=== PATIENT | male | born 1965 | race Caucasian/White ===

== ENCOUNTER 2020-06-02 22:18 | Emergency (ER) | payer MEDICAID, SELFPAY ==
[2020-06-02 22:25] VITALS: BP 127/79; PULSE 88; RESP 20; TEMP 36.7; O2SAT 100; BMI 32.5
--- NOTE | 2020-06-02 22:44 | ED.GENADULT ---
HPI - General Adult General Chief complaint: ETOH/Substance Use Stated complaint: etoh Time Seen by Provider: 06/02/20 22:41 Source: patient Mode of arrival: EMS Limitations: no limitations History of Present Illness HPI narrative: Patient with history of alcohol abuse and did have few beers today asking for the COVID testing scared for COVID denies any cough or shortness of breath Related Data Allergies Allergy/AdvReac Type Severity Reaction Status Date / Time haloperidol [From HALDOL] Allergy Unknown UNKNOWN Unverified 01/12/20 15:58 lithium [[place]] Allergy Unknown UNKNOWN Unverified 01/12/20 15:58 risperidone [From RISPERDAL] Allergy Unknown UNKNOWN Unverified 01/12/20 15:58 [place] Carbonate Allergy Unknown Uncoded 08/23/14 00:00 Review of Systems Review of Systems: Yes Other (Intoxicated) [facility] Social History Social History Advance Directives: No Physical Exam Vital Signs: Vital Signs: Last Vital Signs Temp 98.0 F 06/02/20 22:25 Pulse 88 06/02/20 22:25 Resp 20 06/02/20 22:25 BP 127/79 06/02/20 22:25 Pulse Ox 100 06/02/20 22:25 Body Mass Index 32.5 Const: General: comfortable, no acute distress, well developed and intoxicated appearing Orientation/consciousness: oriented to person and oriented to place HENMT: Head: Yes normal to inspection, Yes normocephalic and Yes atraumatic Ears: hearing grossly normal bilaterally Eyes: General: appearance normal, both eyes and all related structures Neck: Neck: Yes full ROM and Yes no JVD Chest: Chest palpation & inspection: normal inspection of the chest and normal palpation of entire chest wall Resp: Effort & Inspection: normal respiratory effort Auscultation: clear to auscultation bilaterally, no crackles and no rales Cardio: Palpation: normal PMI Rate: regular rate Rhythm: regular rhythm Heart sounds: S1 normal heart sound present and S2 normal heart sound present Peripheral pulses: Peripheral pulses 2+ throughout GI: Inspection: Yes normal to inspection Palpation (GI): Soft to palpation and nontender Back/Spine/Pelvis: Thoracic/Lumbar Spine: No thoracic spinal tenderness and No lumbar spinal tenderness Skin: General skin exam: no rashes or lesions noted Neuro: General: oriented to person, oriented to place, gait normal, tone normal and no focal motor deficits Extrem: General: Yes normal to inspection, Yes no calf tenderness and No pedal edema Course Course Course Narrative: Patient clinically sober able to ambulate unsteady gait COVID-19 is negative will discharge patient home advised to follow with detox Medical Decision Making Lab Data Lab results reviewed: Yes I reviewed the patient's lab results. Labs: Lab Results 06/02/20 Range/Units 23:01 COVID-19 (NITHIN) Negative (Negative) COVID-19 Clin Com See Note Discharge Plan Discharge Clinical Impression: Alcoholic intoxication Qualifiers: Complication of substance-induced condition: uncomplicated Qualified Code(s): F10.920 - Alcohol use, unspecified with intoxication, uncomplicated Patient Disposition: Home, Self-Care Instructions: Abuse of Alcohol (ED) Additional Instructions: Stop drinking alcohol and follow up with detox Print Language: [place] Irish
[2020-06-02 23:23] LABS: COVID-19 Test Negative (Negative); IDNOW Serial# 9DD0AD1C
== END 2020-06-03 00:27 | disposition home or self-care (01) ==
PROVIDERS: Emergency Provider Internal Medicine
DX: F10.920 Alcohol use, unspecified with intoxication, uncomplicated (principal); R05 Cough; Y90.9 Presence of alcohol in blood, level not specified; Z20.822 Contact with and (suspected) exposure to COVID-19
CPT/HCPCS: 36415; 87635; 99283; 99284

== ENCOUNTER 2020-06-22 19:25 | Emergency (ER) | payer MEDICAID, SELFPAY ==
[2020-06-22 19:41] LABS: Glucose, Whole Blood 114 mg/dL (60-115)
[2020-06-22 19:45] VITALS: BP 158/75; PULSE 96; RESP 18; TEMP 36.7; O2SAT 98; BMI 23.1
--- NOTE | 2020-06-22 21:24 | ED.PSYCH ---
HPI - Psych General Chief Complaint: ETOH/Substance Use Stated Complaint: hallucinations Time Seen by Provider: 06/22/20 20:37 Source: patient Mode of arrival: ambulatory Limitations: no limitations History of Present Illness HPI Narrative: Patient comes to emergency room complaining of a rash in both arms, very itchy. Patient also states that he has been hallucinating, seeing monsters in the closet in his room. Patient denies suicidal or homicidal ideation Related Data Previous Rx's Medication Instructions Recorded hydrocortisone 1 appl TOPICAL BID #20 g 06/22/20 Allergies Allergy/AdvReac Type Severity Reaction Status Date / Time haloperidol [From HALDOL] Allergy Unknown UNKNOWN Unverified 01/12/20 15:58 lithium [[place]] Allergy Unknown UNKNOWN Unverified 01/12/20 15:58 risperidone [From RISPERDAL] Allergy Unknown UNKNOWN Unverified 01/12/20 15:58 [place] Carbonate Allergy Unknown Uncoded 08/23/14 00:00 Review of Systems Review of Systems: Constitutional : No Weight loss, No Fever, No Chills, No Night Sweats, No Fatigue, No Malaise ENT/Mouth : No Hearing loss, No Ear Pain, No Nasal Congestion, No Sinus Pain, No Hoarseness, No sore throat, No Rhinorrhea, No Swallowing Difficulty Eyes: No Eye Pain, No Swelling, No Redness, No Foreign Body, No Discharge, No Vision Changes Cardiovascular : No Chest Pain, No SOB, No Dyspnea on Exertion, No Orthopnea, No Edema, No Palpitations Respiratory : No Cough, No Sputum, No Wheezing, No Smoke Exposure, No Dyspnea Gastrointestinal : No Nausea, No Vomiting, No Diarrhea, No Constipation, No abdominal Pain, No Hematochezia, No Melena Genitourinary : no irregular bleeding, No Dysuria, No Urinary Frequency, No Hematuria, No Urinary Incontinence, No Urgency, No Flank Pain, No Urinary Flow Changes, No Hesitancy Musculoskeletal : No joint pain, No Myalgias, No Joint Swelling Skin : Itchy rash on forearms Neuro : No Weakness, No Numbness, No Paresthesias, No Loss of Consciousness, No Dizziness, No Headache Psych : No Anxiety/Panic, No Depression, No SI/HI/AH/VH, complaining of visual hallucinations, seeing monsters in his closet Heme/Lymph: No Bruising, No Bleeding,No Lymphadenopathy Endocrine : No Polyuria, No Polydipsia, No Temperature Intolerance [facility] Past Medical History Medical History Diabetes HTN (hypertension) Schizophrenia Social History Social History Advance Directives: No Advance Directives Information Provided: No Physical Exam Vital Signs: Vital Signs: Last Vital Signs Temp 98.1 F 06/22/20 19:45 Pulse 96 06/22/20 19:45 Resp 18 06/22/20 19:45 BP 158/75 H 06/22/20 19:45 Pulse Ox 98 06/22/20 19:45 Body Mass Index 23.1 Appearance: Alert. Oriented X3. No acute distress. Eyes: Pupils equal, round and reactive to light. ENT: Pharynx normal. Neck: Normal inspection. Neck supple. No lymph nodes noted. No crepitus CVS: Normal heart rate and rhythm. Pulses normal. Normal S1 and S2 Respiratory: No respiratory distress. Breath sounds normal. No Wheezing. No rales Abdomen: Soft and nontender. No rigidity. No distention. good BS x4 Skin: Skin warm and dry. Scabs in his forearm, no definite rash. Seems that the patient has been taking in his arms, no rash in the back, few scabs in the upper thighs, none in the lower extremities, none in the abdominal area Extremities: No lower extremity edema. No lower extremity edema. No Lacerations. No Rash Neuro: Oriented X 3. No motor deficit. No sensory deficit. Moving all extermities. No slurred speech. Course Course Course Narrative: Nonspecific rash, this does not look like bedbug bites or scabies. Regarding the hallucinations, I discussed with the patient that he should be seen by behavioral health [facility]. Patient states that he does not want to see behavioral health network. Patient is not suicidal or homicidal, patient is alert and oriented x3. There is no reason to Section 12 the patient. MDM - Psych Lab Data Labs: Lab Results 06/22/20 Range/Units 19:38 POC Glucose 114 (60-115) mg/dL Discharge Plan Discharge Clinical Impression: Dermatitis Patient Disposition: Home, Self-Care Instructions: Dermatitis (ED) Additional Instructions: If you have any ongoing hallucinations or any new symptoms, please return to the emergency room. Please follow-up with your primary care physician meetorrow. If you have any worsening or new symptoms, please return to the emergency room or call 911 Prescriptions: New hydrocortisone 2.5 % cream 1 appl topical BID Qty: 20 RF: 0
== END 2020-06-22 21:47 | disposition home or self-care (01) ==
PROVIDERS: Emergency Provider Emergency Medicine
DX: L30.9 Dermatitis, unspecified (principal); R21 Rash and other nonspecific skin eruption; R44.1 Visual hallucinations; F20.9 Schizophrenia, unspecified; E11.9 Type 2 diabetes mellitus without complications; I10 Essential (primary) hypertension
CPT/HCPCS: 82947; 99282; 99283

== ENCOUNTER 2020-07-13 03:26 | Emergency (ER) | payer MEDICAID, SELFPAY ==
[2020-07-13 03:35] VITALS: BP 139/69; PULSE 94; RESP 18; TEMP 36.6; O2SAT 98; BMI 30.2
--- NOTE | 2020-07-13 03:44 | ED.ALCOHOL ---
HPI - Alcohol General Chief Complaint: Psychiatric Symptoms Stated Complaint: PSYCH EVAL Time Seen by Provider: 07/13/20 03:43 History of Present Illness HPI narrative: Patient history of ETOH. Positive psych history. Patient denies any suicidal homicidal ideation. ? intoxicated. Sent in for further evaluation. Related Data Previous Rx's Medication Instructions Recorded hydrocortisone 1 appl TOPICAL BID #20 g 06/22/20 Allergies Allergy/AdvReac Type Severity Reaction Status Date / Time haloperidol [From HALDOL] Allergy Unknown UNKNOWN Unverified 01/12/20 15:58 lithium [[place]] Allergy Unknown UNKNOWN Unverified 01/12/20 15:58 risperidone [From RISPERDAL] Allergy Unknown UNKNOWN Unverified 01/12/20 15:58 [place] Carbonate Allergy Unknown Uncoded 08/23/14 00:00 Review of Systems Review of Systems: Unable to obtain review of systems secondary to patient's condition [facility] Past Medical History Medical History Diabetes HTN (hypertension) Schizophrenia Social History Social History Advance Directives: No Advance Directives Information Provided: No Physical Exam Vital Signs: Vital Signs: Last Vital Signs Temp 97.9 F 07/13/20 03:35 Pulse 94 07/13/20 03:35 Resp 18 07/13/20 03:35 BP 139/69 07/13/20 03:35 Pulse Ox 98 07/13/20 03:35 Body Mass Index 30.2 Appearance: Alert. Oriented X3. No acute distress. Eyes: Pupils equal, round and reactive to light. ENT: Pharynx normal. Neck: Normal inspection. Neck supple. No lymph nodes noted. No crepitus CVS: Normal heart rate and rhythm. Pulses normal. Normal S1 and S2 Respiratory: No respiratory distress. Breath sounds normal. No Wheezing. No rales Abdomen: Soft and nontender. No rigidity. No distention. good BS x4 Skin: Skin warm and dry. Normal skin color. Normal skin turgor. Extremities: No lower extremity edema. Neurovascular intact to all extremities. No Lacerations. No Rash Neuro: Oriented X 3. No motor deficit. No sensory deficit. Moving all extermities. No slurred speech MDM - Alcohol MDM Narrative Medical decision making narrative: Will obtain alcohol level and await patient's sobering. Lab Data Labs: Lab Results 07/13/20 07/13/20 07/13/20 Range/Units 03:47 03:47 04:20 Urine Opiates Screen Not Detected (Not Detect) Ur Barbiturates Screen Not Detected (Not Detect) Ur Phencyclidine Scrn Not Detected (Not Detect) Ur Amphetamines Screen Not Detected (Not Detect) U Benzodiazepines Scrn Not Detected (Not Detect) Urine Cocaine Screen Not Detected (Not Detect) U Marijuana (THC) Screen Not Detected (Not Detect) Ethyl Alcohol 10 mg/dL COVID-19 (NITHIN) Negative (Negative) COVID-19 Clin Com See Note Discharge Plan Discharge Clinical Impression: Alcoholic intoxication, Substance abuse Patient Disposition: Home, Self-Care Instructions: Alcohol Intoxication (ED), Polysubstance Abuse (ED) Prescriptions: No Action hydrocortisone 2.5 % cream 1 appl topical BID Qty: 20 RF: 0 Print Language: Tajik
[2020-07-13 04:16] LABS: COVID-19 Test Negative (Negative)
[2020-07-13 04:55] LABS: Ethanol 10 mg/dL
[2020-07-13 04:58] LABS: Amphetamine Screen Urine Not Detected (Not Detect); Barbiturates, Urine Not Detected (Not Detect); Benzodiazepines Screen Urine Not Detected (Not Detect); Cannabinoid Screen Urine Not Detected (Not Detect); Cocaine Screen Urine Not Detected (Not Detect); Opiate Screen Urine Not Detected (Not Detect); Phencyclidine Screen Urine Not Detected (Not Detect)
== END 2020-07-13 06:10 | disposition home or self-care (01) ==
PROVIDERS: Emergency Provider Emergency Medicine Emergency Medical Services
DX: F10.120 Alcohol abuse with intoxication, uncomplicated (principal); Y90.0 Blood alcohol level of less than 20 mg/100 ml; F19.10 Other psychoactive substance abuse, uncomplicated; F20.9 Schizophrenia, unspecified; I10 Essential (primary) hypertension; E11.9 Type 2 diabetes mellitus without complications
CPT/HCPCS: 36415; 80307; 80320; 87635; 99284

== ENCOUNTER 2020-07-31 10:20 | Emergency (ER) | payer MEDICAID, SELFPAY ==
--- NOTE | ~2020-07-31 | CT_ITS ---
EXAMINATION: CT HEAD WITHOUT CONTRAST CLINICAL INFORMATION: Altered mental status COMPARISON: Head CT September 24, 2017 TECHNIQUE: Contiguous axial imaging was performed from the skull base to vertex without intravenous administration of contrast. This CT examination was performed using dose optimization techniques as appropriate, variously including the following: *Automated exposure control *Adjustment of mA and/or kV according to patient size (this includes techniques or standardized protocols for targeted exams where dose is matched to indication/reason for exam; i.e. extremities or head) *Use of iterative reconstruction technique DLP: 662 mGy-cm FINDINGS: There is no evidence of acute intracranial hemorrhage or territorial infarction. No abnormal mass effect or midline shift is seen. Hirsch to white matter differentiation is well preserved. No extra-axial fluid collections are identified. The ventricles are normal in size. There is no abnormal attenuation within the brain parenchyma. The osseous structures and soft tissues are normal. The mastoid air cells and visualized portions of the paranasal sinuses are well aerated. CT/CT head/brain wo con IMPRESSION: No acute intracranial pathology.
--- NOTE | 2020-07-31 10:22 | ED.PSYCH ---
HPI - Psych General Chief Complaint: Altered Mental Status Stated Complaint: PSYCH EVAL Time Seen by Provider: 07/31/20 10:22 Source: patient, EMS and [facility]cel[employer] Mode of arrival: EMS Limitations: altered mental status History of Present Illness HPI Narrative: 55 yo male with hx of DM, HTN, schizophrenia sent in by his provider for increased confusion, hallucinations, not showing up for appointments not taking his psychiatric medications MD complaint: altered mental status and hallucinations Onset (ago): unknown Duration: constant History of same: Yes Relieving factors: none Exacerbating factors: none Context: not taking psychiatric medications Associated psychiatric symptoms: none Associated symptoms: confusion Treatments prior to arrival: none Related Data Home Medications Medication Instructions Recorded Confirmed benztropine 1 mg PO BID 07/31/20 07/31/20 famotidine 20 mg PO BID 07/31/20 07/31/20 fluphenazine HCl 5 mg PO DAILY 07/31/20 07/31/20 fluphenazine decanoate 50 mg IM Q2W 07/31/20 glyburide 5 mg PO DAILY 07/31/20 07/31/20 lisinopril 10 mg PO DAILY 07/31/20 07/31/20 metformin 500 mg PO BID 07/31/20 07/31/20 pioglitazone 15 mg PO DAILY 07/31/20 07/31/20 Allergies Allergy/AdvReac Type Severity Reaction Status Date / Time haloperidol [From HALDOL] Allergy Unknown UNKNOWN Unverified 01/12/20 15:58 lithium [[place]] Allergy Unknown UNKNOWN Unverified 01/12/20 15:58 risperidone [From RISPERDAL] Allergy Unknown UNKNOWN Unverified 01/12/20 15:58 [place] Carbonate Allergy Unknown Uncoded 08/23/14 00:00 Review of Systems Review of Systems: Constitutional : No Weight loss, No Fever, No Chills, No Fatigue, No Malaise ENT/Mouth : No sore throat, No Rhinorrhea Eyes: No Eye Pain, No Swelling, No Redness Cardiovascular : No Chest Pain, No SOB, No Dyspnea on Exertion, No Orthopnea, No Edema, No Palpitations Respiratory : No Cough, No Sputum, No Wheezing Gastrointestinal : No Nausea, No Vomiting, No Diarrhea, No Constipation, No abdominal Pain, No Hematochezia, No Melena Genitourinary : No Dysuria, No Urinary Frequency, No Hematuria, Musculoskeletal : No joint pain, No Myalgias, No Joint Swelling Skin : No Skin Lesions, No rash Neuro : No Weakness, No Numbness, No Dizziness, No Headache Psych : No Anxiety/Panic, No Depression, pos hallucinations, no SI/HI Heme/Lymph: No Bruising, No Bleeding,No Lymphadenopathy Endocrine : No Polyuria, No Polydipsia All other systems reviewed and are negative [facility] Past Medical History Attestation statement: The following information was validated with the patient. Medical History Diabetes HTN (hypertension) Schizophrenia Social History Social History (Updated 07/31/20 @ 10:36 by Saida Giron DO) Alcohol intake: current Smoking Status: Current every day smoker Use of substances other than those prescribed or required for medical reasons: No Substance Use Type: Crack/Cocaine and Marijuana Last Used Substance: Days (ago) Advance Directives: No Advance Directives Information Provided: No Physical Exam Vital Signs: Vital Signs: Last Vital Signs Temp 98.6 F 07/31/20 10:32 Pulse 86 07/31/20 10:32 Resp 16 07/31/20 10:32 BP 145/61 H 07/31/20 10:32 Pulse Ox 98 07/31/20 10:32 Body Mass Index 31.3 Appearance: Alert. Oriented X2. No acute distress. Eyes: Pupils equal, round and reactive to light. ENT: Pharynx normal. Neck: Normal inspection. Neck supple. CVS: Normal heart rate and rhythm. Pulses normal. Respiratory: No respiratory distress. Breath sounds normal. Abdomen: Soft and nontender. Skin: Skin warm and dry. Normal skin color. Normal skin turgor. Extremities: No lower extremity edema. No calf ttp Neuro: Oriented X 2. No motor deficit. No sensory deficit. Psych: calm cooperative, smiling, + AH/VH Course Course Course Narrative: Physician observation started at 245pm. Patient placed in physician observation because the patient needed more time to see [facility] and be evaluated for the need for psych admission. At the time observation was started the patient's vitals were stable, patient is alert but confused and at times slightly agitated, Neuro: nonfocal, CV RRR, Lungs clear K 6.5 EKG ordered normal Cr - could be error, will repeat and dose oral kayexalate patient signed out to Dr. Peralta pending workup and [facility] K 5.8 will repeat and check later MDM - Psych MDM Narrative Medical decision making narrative: 55 yo male with DM, HTN, schizophrenia not compliant with medications - sent by providers, has increased confusion at this time will need labs, CT head to r/o mass, could just be non compliance once medically cleared will refer to [facility] Lab Data Result diagrams: 07/31/20 14:41 07/31/20 15:52 Labs: Lab Results 07/31/20 07/31/20 07/31/20 Range/Units 11:37 11:37 11:38 WBC (4.8-10.8) X10*3/uL RBC (4.60-5.80) X10*6/uL Hgb (14.0-18.0) g/dl Hct (42-52) % MCV (80-98) fL MCH (27.0-33.0) pg MCHC (31.0-36.0) g/dl RDW (11.0-16.0) % Plt Count (160-400) X10*3/uL MPV (9.4-12.4) fL Immature Gran % (Auto) (0.0-0.4) % Neut % (Auto) (45-73) % Lymph % (Auto) (20-40) % [place] % (Auto) (2-11) % Eos % (Auto) (0-4) % Baso % (Auto) (0-2) % Lymph # (Auto) (1.2-4.9) X10*3/uL [place] # (Auto) (0.1-1.2) X10*3/uL Eos # (Auto) (0.0-0.4) X10*3/uL Baso # (Auto) (0.0-0.2) X10*3/uL Abs Immat Gran (auto) (0.00-0.03) X10*3/uL Absolute Neuts (auto) (2.0-8.3) X10*3/uL Absolute Nucleated RBC (0.0-0.012) X10*3/uL Nucleated RBC % (auto) (0.0-0.2) /100WBC Hold Blue Top Sodium (135-145) mmol/L Potassium (3.3-5.1) mmol/L Chloride (96-108) mmol/L Carbon Dioxide (22-29) mmol/L Anion Gap (12-20) BUN (9-16) mg/dL Creatinine (0.5-1.4) mg/dL Estim Creat Clear Calc Estimated GFR Random Glucose (60-115) mg/dL Calcium (8.4-10.2) mg/dL Total Bilirubin (0.0-1.0) mg/dL Direct Bilirubin (0.0-0.5) mg/dL AST (5-37) U/L ALT (0-40) U/L Alkaline Phosphatase (39-117) U/L Total Protein (6.5-8.0) g/dL Albumin (3.5-5.0) g/dL Urine Color Urine Appearance Urine pH (5.0-8.0) Ur Specific [place] (1.005-1.025) Urine Protein (NEG-TRACE) MG/DL Urine Glucose (UA) (NEG) MG/DL Urine Ketones (NEG) MG/DL Urine Blood (NEG) Urine Nitrite (NEG) Ur Leukocyte Esterase (NEG) Urine Opiates Screen Not Detected (Not Detect) Ur Barbiturates Screen Not Detected (Not Detect) Ur Phencyclidine Scrn Not Detected (Not Detect) Ur Amphetamines Screen Not Detected (Not Detect) U Benzodiazepines Scrn Not Detected (Not Detect) Urine Cocaine Screen POSITIVE H (Not Detect) U Marijuana (THC) Screen Not Detected (Not Detect) Ethyl Alcohol < 10 mg/dL COVID-19 (NITHIN) Negative (Negative) COVID-19 Clin Com See Note 07/31/20 07/31/20 07/31/20 Range/Units 11:38 14:41 14:41 WBC 10.3 (4.8-10.8) X10*3/uL RBC 4.03 L (4.60-5.80) X10*6/uL Hgb 12.1 L (14.0-18.0) g/dl Hct 37.3 L (42-52) % MCV 92.6 (80-98) fL MCH 30.0 (27.0-33.0) pg MCHC 32.4 (31.0-36.0) g/dl RDW 11.9 (11.0-16.0) % Plt Count 249 (160-400) X10*3/uL MPV 9.7 (9.4-12.4) fL Immature Gran % (Auto) 0.7 H (0.0-0.4) % Neut % (Auto) 82.6 H (45-73) % Lymph % (Auto) 9.8 L (20-40) % [place] % (Auto) 5.6 (2-11) % Eos % (Auto) 0.6 (0-4) % Baso % (Auto) 0.7 (0-2) % Lymph # (Auto) 1.0 L (1.2-4.9) X10*3/uL [place] # (Auto) 0.6 (0.1-1.2) X10*3/uL Eos # (Auto) 0.1 (0.0-0.4) X10*3/uL Baso # (Auto) 0.1 (0.0-0.2) X10*3/uL Abs Immat Gran (auto) 0.07 H (0.00-0.03) X10*3/uL Absolute Neuts (auto) 8.5 H (2.0-8.3) X10*3/uL Absolute Nucleated RBC 0.000 (0.0-0.012) X10*3/uL Nucleated RBC % (auto) 0.0 (0.0-0.2) /100WBC Hold Blue Top SEE NOTE Sodium (135-145) mmol/L Potassium (3.3-5.1) mmol/L Chloride (96-108) mmol/L Carbon Dioxide (22-29) mmol/L Anion Gap (12-20) BUN (9-16) mg/dL Creatinine (0.5-1.4) mg/dL Estim Creat Clear Calc Estimated GFR Random Glucose (60-115) mg/dL Calcium (8.4-10.2) mg/dL Total Bilirubin (0.0-1.0) mg/dL Direct Bilirubin (0.0-0.5) mg/dL AST (5-37) U/L ALT (0-40) U/L Alkaline Phosphatase (39-117) U/L Total Protein (6.5-8.0) g/dL Albumin (3.5-5.0) g/dL Urine Color YELLOW Urine Appearance CLEAR Urine pH 6.0 (5.0-8.0) Ur Specific [place] 1.020 (1.005-1.025) Urine Protein NEG (NEG-TRACE) MG/DL Urine Glucose (UA) NEG (NEG) MG/DL Urine Ketones NEG (NEG) MG/DL Urine Blood NEG (NEG) Urine Nitrite NEG (NEG) Ur Leukocyte Esterase NEG (NEG) Urine Opiates Screen (Not Detect) Ur Barbiturates Screen (Not Detect) Ur Phencyclidine Scrn (Not Detect) Ur Amphetamines Screen (Not Detect) U Benzodiazepines Scrn (Not Detect) Urine Cocaine Screen (Not Detect) U Marijuana (THC) Screen (Not Detect) Ethyl Alcohol mg/dL COVID-19 (NITHIN) (Negative) COVID-19 Clin Com 07/31/20 07/31/20 Range/Units 14:41 15:52 WBC (4.8-10.8) X10*3/uL RBC (4.60-5.80) X10*6/uL Hgb (14.0-18.0) g/dl Hct (42-52) % MCV (80-98) fL MCH (27.0-33.0) pg MCHC (31.0-36.0) g/dl RDW (11.0-16.0) % Plt Count (160-400) X10*3/uL MPV (9.4-12.4) fL Immature Gran % (Auto) (0.0-0.4) % Neut % (Auto) (45-73) % Lymph % (Auto) (20-40) % [place] % (Auto) (2-11) % Eos % (Auto) (0-4) % Baso % (Auto) (0-2) % Lymph # (Auto) (1.2-4.9) X10*3/uL [place] # (Auto) (0.1-1.2) X10*3/uL Eos # (Auto) (0.0-0.4) X10*3/uL Baso # (Auto) (0.0-0.2) X10*3/uL Abs Immat Gran (auto) (0.00-0.03) X10*3/uL Absolute Neuts (auto) (2.0-8.3) X10*3/uL Absolute Nucleated RBC (0.0-0.012) X10*3/uL Nucleated RBC % (auto) (0.0-0.2) /100WBC Hold Blue Top Sodium 137 (135-145) mmol/L Potassium 6.5 H* 5.8 H (3.3-5.1) mmol/L Chloride 100 (96-108) mmol/L Carbon Dioxide 31 H (22-29) mmol/L Anion Gap 13 (12-20) BUN 9 (9-16) mg/dL Creatinine 0.87 (0.5-1.4) mg/dL Estim Creat Clear Calc 101.8 Estimated GFR > 60 Random Glucose 213 H (60-115) mg/dL Calcium 9.8 (8.4-10.2) mg/dL Total Bilirubin 0.6 (0.0-1.0) mg/dL Direct Bilirubin 0.2 (0.0-0.5) mg/dL AST 22 (5-37) U/L ALT 15 (0-40) U/L Alkaline Phosphatase 88 (39-117) U/L Total Protein 7.1 (6.5-8.0) g/dL Albumin 4.4 (3.5-5.0) g/dL Urine Color Urine Appearance Urine pH (5.0-8.0) Ur Specific [place] (1.005-1.025) Urine Protein (NEG-TRACE) MG/DL Urine Glucose (UA) (NEG) MG/DL Urine Ketones (NEG) MG/DL Urine Blood (NEG) Urine Nitrite (NEG) Ur Leukocyte Esterase (NEG) Urine Opiates Screen (Not Detect) Ur Barbiturates Screen (Not Detect) Ur Phencyclidine Scrn (Not Detect) Ur Amphetamines Screen (Not Detect) U Benzodiazepines Scrn (Not Detect) Urine Cocaine Screen (Not Detect) U Marijuana (THC) Screen (Not Detect) Ethyl Alcohol mg/dL COVID-19 (NITHIN) (Negative) COVID-19 Clin Com ECG Data Attestation: I personally reviewed and interpreted this ECG as follows: ECG interpretation date: 07/31/20 ECG interpretation time: 16:19 Interpretation: Rate: 83 Rhythm: NSR [place]: normal Normal P waves. Normal LOGAN. Normal QRS complex. ST T wave : inverted I and aVL, nonspecific, no CAMI qTC: normal prior studies: no change dec 2019 The study has been interpreted contemporaneously by me. . Discharge Plan Discharge Clinical Impression: Cocaine abuse Schizophrenia Qualifiers: Schizophrenia type: other Qualified Code(s): F20.89 - Other schizophrenia Prescriptions: No Action pioglitazone 15 mg tablet 15 mg PO DAILY RF: 0 glyburide 5 mg tablet 5 mg PO DAILY RF: 0 famotidine 20 mg tablet 20 mg PO BID RF: 0 fluphenazine decanoate 25 mg/mL solution 50 mg IM Q2W RF: 0 lisinopril 10 mg tablet 10 mg PO DAILY RF: 0 benztropine 1 mg tablet 1 mg PO BID RF: 0 metformin 500 mg tablet extended release 24 hr 500 mg PO BID RF: 0 fluphenazine HCl 5 mg tablet 5 mg PO DAILY RF: 0
[2020-07-31 10:28] VITALS: BP 152/82; PULSE 75
--- NOTE | 2020-07-31 10:29 | PC.NURSE ---
patient nurse Jasson # [phone]
[2020-07-31 10:30] VITALS: BP 153/72; PULSE 84; RESP 18; TEMP 37.4; O2SAT 98
[2020-07-31 10:32] VITALS: BP 145/61; PULSE 86; RESP 16; TEMP 37; O2SAT 98; BMI 31.3
--- NOTE | 2020-07-31 10:45 | PC.NURSE ---
pt brought in by ems from doctors office reportedly experiencing visual and auditory hallucinations, has not been taking psych meds. pt able to state name and date of , unable to state where he is right now or where he was brought in from, also unable to state the current year or president. eye contact is somewhat appropriate, when prompted by this nurse he makes eye contact and speaks however he also stares blankly when unable to answer questions. when asked if he is currently experiencing visual or auditory hallucinations he is unable to answer clearly. patient denies any pain at this time. respiratory rate is even and effort is unlabored. pt denies any suicidal ideation at this time. pt able to lift both arms and both legs independently, moves all extremities and head voluntarily. pt does not appear in distress at this time. pt is now being taken to CT.
[2020-07-31 11:55] LABS: Glucose Urine UA NEG (NEG); Leukocyte Esterase Urine NEG (NEG); Nitrite Urine NEG (NEG); Urine Blood NEG (NEG); Urine Ketones NEG (NEG); Urine Protein NEG (NEG-TRACE)
[2020-07-31 11:58] LABS: Appearance Urine CLEAR; Color Urine YELLOW
--- NOTE | 2020-07-31 11:59 | PC.NURSE ---
paperwork faxed to [facility], spoke with Sandy and confirmed that fax was received
[2020-07-31 12:01] LABS: COVID-19 Test Negative (Negative)
[2020-07-31 12:12] LABS: Ethanol < 10 mg/dL
[2020-07-31 12:15] LABS: Amphetamine Screen Urine Not Detected (Not Detect); Barbiturates, Urine Not Detected (Not Detect); Benzodiazepines Screen Urine Not Detected (Not Detect); Cannabinoid Screen Urine Not Detected (Not Detect); Cocaine Screen Urine POSITIVE (Not Detect); Opiate Screen Urine Not Detected (Not Detect); Phencyclidine Screen Urine Not Detected (Not Detect)
[2020-07-31] MEDS: Nicotine 21 MG PATCH.TD24 TRANSDERMA (12:41)
[2020-07-31 14:45] LABS: MANUAL DIFF FLAG NO
[2020-07-31 14:48] LABS: Basophils Absolute Auto 0.1 X10*3/uL (0.0-0.2); Basophils Percent Auto 0.7 % (0-2); Eosinophils Absolute Auto 0.1 X10*3/uL (0.0-0.4); Eosinophils Percent Auto 0.6 % (0-4); Hematocrit 37.3 % (42-52); Hemoglobin 12.1 g/dl (14.0-18.0); Imm Gran Abs Auto 0.07 X10*3/uL (0.00-0.03); Imm Gran Pct Auto 0.7 % (0.0-0.4); Lymphocytes Percent Auto 9.8 % (20-40); Mean Corpuscular HGB Conc 32.4 g/dl (31.0-36.0); Mean Corpuscular Volume 92.6 fL (80-98); Mean Platelet Volume 9.7 fL (9.4-12.4); Monocytes Absolute Auto 0.6 X10*3/uL (0.1-1.2); Monocytes Percent Auto 5.6 % (2-11); Neutrophils Absolute Auto 8.5 X10*3/uL (2.0-8.3); Neutrophils Percent Auto 82.6 % (45-73); Platelet Count 249 X10*3/uL (160-400); Red Blood Count 4.03 X10*6/uL (4.60-5.80); Red Cell Distribution Width 11.9 % (11.0-16.0); White Blood Count 10.3 X10*3/uL (4.8-10.8)
[2020-07-31 15:24] LABS: Alanine Aminotransferase 15 U/L (0-40); Albumin Level 4.4 g/dL (3.5-5.0); Alkaline Phosphatase 88 U/L (39-117); Anion Gap 13 (12-20); Aspartate Amino Transferase 22 U/L (5-37); Bilirubin Direct 0.2 mg/dL (0.0-0.5); Bilirubin Total 0.6 mg/dL (0.0-1.0); Blood Urea Nitrogen 9 mg/dL (9-16); Calcium 9.8 mg/dL (8.4-10.2); Carbon Dioxide 31 mmol/L (22-29); Chloride 100 mmol/L (96-108); Creatinine Clr Calc Pharmacy 101.8; Estimated Glomerular Filt Rate > 60; Glucose Random 213 mg/dL (60-115); Potassium 6.5 mmol/L (3.3-5.1); Sodium 137 mmol/L (135-145); Total Protein 7.1 g/dL (6.5-8.0)
--- NOTE | 2020-07-31 15:26 | ECG_ITS ---
Test Reason : REPEAT Blood Pressure : / mmHG Vent. Rate : 083 BPM Atrial Rate : 083 BPM P-R Int : 154 ms QRS Dur : 084 ms QT Int : 372 ms P-R-T Axes : 058 038 105 degrees QTc Int : 437 ms Normal sinus rhythm Nonspecific T wave abnormality Abnormal ECG When compared with ECG of 09-JAN-2020 14:10, No significant change was found Referred By: Saida Giron Electronically Signed By:MELISSA JOSEPH MD
[2020-07-31 16:15] LABS: Potassium 5.8 mmol/L (3.3-5.1)
[2020-07-31] MEDS: Sodium Polystyrene Sulfon/Sorb 15 GM/60 ML ORAL.SUSP 30 GM PO (16:48)
[2020-07-31 20:00] VITALS: BP 138/73; PULSE 92; RESP 15; O2SAT 99
--- NOTE | 2020-07-31 21:12 | PC.NURSE ---
Medication not given at scheduled time because it is not in the pyxis and pharmacy has to bring down.
[2020-07-31] MEDS: Sodium Zirconium Cyclosilicate 10 GM POWD.PACK PO (21:21)
[2020-07-31 22:00] VITALS: BP 164/90; PULSE 110; RESP 20; TEMP 37; O2SAT 97
[2020-07-31 23:38] LABS: Potassium 3.9 mmol/L (3.3-5.1)
[2020-08-01 09:23] VITALS: BP 142/78; PULSE 80; RESP 16; TEMP 37.2; O2SAT 98
[2020-08-01] MEDS: Nicotine 21 MG PATCH.TD24 TRANSDERMA (11:41)
--- NOTE | 2020-08-01 15:24 | PC.NURSE ---
Report received. Waiting to be seen by N. Calm and cooperative.
[2020-08-01 21:35] VITALS: BP 178/83; PULSE 93; RESP 20; TEMP 36.3; O2SAT 97
[2020-08-01] MEDS: metFORMIN HCl ER 500 MG TAB.ER.24H PO (21:43)
[2020-08-01 21:44] VITALS: BP 178/83; PULSE 93
[2020-08-01] MEDS: lisinopriL 10 MG TABLET PO ×2 (21:44→21:45)
[2020-08-01] MEDS: Benztropine Mesylate 1 MG TABLET PO (21:44)
[2020-08-01] MEDS: Famotidine 20 MG TABLET PO (21:44)
[2020-08-01 21:45] VITALS: BP 178/83; PULSE 93
[2020-08-01] MEDS: fluPHENAZine HCl 5 MG TABLET PO (22:05)
--- NOTE | 2020-08-01 22:52 | PC.NURSE ---
Jennifer from [facility] called reported that patient has been accepted to [facility] ([address], [place] - [address]), [address] Dr[address] Cordova. ETA at [facility] is @ 1400 on 08/02/2020. When asked to confirm the address one more time, Jennifer reaffirmed above address on more time.
[2020-08-02 00:09] VITALS: BP 124/103; PULSE 77; RESP 18; TEMP 36.4; O2SAT 98
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
--- NOTE | 2020-08-02 07:01 | PC.NURSE ---
Report received. PT currently eating breakfast, calm and cooperative. Pt to be transferred to [facility] today.
[2020-08-02 08:59] VITALS: BP 167/81; PULSE 83; RESP 20; TEMP 36.5; O2SAT 99
[2020-08-02] MEDS: glyBURIDE 5 MG TABLET PO (09:29)
[2020-08-02] MEDS: Benztropine Mesylate 1 MG TABLET PO (09:29)
[2020-08-02] MEDS: fluPHENAZine HCl 5 MG TABLET PO (09:29)
[2020-08-02] MEDS: metFORMIN HCl ER 500 MG TAB.ER.24H PO (09:29)
[2020-08-02] MEDS: Famotidine 20 MG TABLET PO (09:29)
== END 2020-08-02 12:18 ==
PROVIDERS: Emergency Provider Emergency Medicine
DX: F20.89 Other schizophrenia (principal); R41.82 Altered mental status, unspecified; F14.10 Cocaine abuse, uncomplicated; F12.90 Cannabis use, unspecified, uncomplicated; F17.200 Nicotine dependence, unspecified, uncomplicated; Z71.6 Tobacco abuse counseling; Z20.822 Contact with and (suspected) exposure to COVID-19; Z79.899 Other long term (current) drug therapy
CPT/HCPCS: 36415; 70450; 80048; 80076; 80307; 80320; 81003; 84132; 85025; 87635; 93005; 96372; 99285

== ENCOUNTER 2021-04-29 10:12 | Emergency (ER) | payer MEDICAID, SELFPAY ==
[2021-04-29 10:31] VITALS: BP 120/76; PULSE 80; RESP 18; TEMP 36.7; O2SAT 99; BMI 29.9
--- NOTE | 2021-04-29 10:44 | ED_ITS ---
HPI - Alcohol General Chief Complaint: ETOH/Substance Use Stated Complaint: INCREASED CONFUSION,ETOH USE,H/O PSYCH D/O PER EMS Time Seen by Provider: 04/29/21 10:40 Source: patient Mode of arrival: EMS History of Present Illness HPI narrative: 55 yo male presented by ambulance intoxicated with alcohol ,agitated MD complaint: alcohol intoxication Last drink: Just prior to admission Chronic alcohol use: Yes Previous visits for alcohol intoxication: Yes Recent trauma: Yes Associated symptoms: denies other symptoms Related Data Home Medications Medication Instructions Recorded Confirmed benztropine 1 mg tablet 1 mg PO BID 07/31/20 07/31/20 famotidine 20 mg tablet 20 mg PO BID 07/31/20 07/31/20 fluphenazine HCl 5 mg tablet 5 mg PO DAILY 07/31/20 07/31/20 fluphenazine decanoate 25 mg/mL 50 mg IM Q2W 07/31/20 07/31/20 injection solution glyburide 5 mg tablet 5 mg PO DAILY 07/31/20 07/31/20 lisinopril 10 mg tablet 10 mg PO DAILY 07/31/20 07/31/20 metformin 500 mg tablet,extended 500 mg PO BID 07/31/20 07/31/20 release 24 hr pioglitazone 15 mg tablet 15 mg PO DAILY 07/31/20 07/31/20 Allergies Allergy/AdvReac Type Severity Reaction Status Date / Time haloperidol [From HALDOL] Allergy Unknown UNKNOWN Verified 07/31/20 21:19 lithium [[place]] Allergy Unknown UNKNOWN Verified 07/31/20 21:19 risperidone [From RISPERDAL] Allergy Unknown UNKNOWN Verified 07/31/20 21:19 [place] Carbonate Allergy Unknown Unknown Uncoded 07/31/20 21:19 Review of Systems ENT: Reports system reviewed and no additional complaints, except as documented Cardiovascular: Cardiovascular: Denies chest pain, Denies chest pain at rest and Denies dyspnea Respiratory: Respiratory: Denies no additional respiratory complaints, Denies pain with cough and Denies dyspnea Musculoskeletal: Musculoskeletal: Reports no additional musculoskeletal complaints PMFSH Past Medical History Attestation statement: The following information was validated with the patient. Medical History Diabetes HTN (hypertension) Schizophrenia Social History Social History Alcohol intake: current Alcohol intake frequency: 3 or more drinks per day Alcohol type: beer Patient Tobacco Use Status: Current everyday Tobacco user Use of substances other than those prescribed or required for medical reasons: Yes Substance Use Type: Crack/Cocaine Advance Directives: No Advance Directives Information Provided: No Physical Exam Vital Signs: Vital Signs: Last Vital Signs Temp 98.0 F 04/29/21 10:31 Pulse 80 04/29/21 10:31 Resp 18 04/29/21 10:31 BP 120/76 04/29/21 10:31 Pulse Ox 99 04/29/21 10:31 BMI result Body Mass Index 29.9 Const: General: no acute distress, well developed, alert and awake Nutritional Appearance: average body habitus Orientation/consciousness: patient oriented x3 HENMT: Head: Yes normal to inspection Face and sinus: Yes normal facial exam Throat: Yes posterior oropharynx normal Neck: Neck: Yes normal visual inspection, Yes full ROM and Yes no lymphadenopathy Resp: Effort & Inspection: normal respiratory effort and able to speak in complete sentences Cardio: Jugular venous distension: no JVD Rate: regular rate Rhythm: regular rhythm GI: Inspection: Yes normal to inspection Palpation (GI): Soft to palpation, not firm, nontender and no guarding Auscultation: normal bowel sounds Skin: General skin exam: no rashes or lesions noted and elasticity normal Lesions: no lesions Rashes: no rashes Neuro: General: patient oriented x3 Course Reevaluation(s) Reevaluation #1: he is calm cooperative gait stable no ataxia no SI,does not want detox,will have care team talk to the pt Reevaluation #2: we are waiting for KETTY mccormick hx signed off to Dr Peralta [facility] - Alcohol Lab Data Result diagrams: 04/29/21 11:00 04/29/21 11:00 Labs: Lab Results 04/29/21 04/29/21 04/29/21 Range/Units 11:00 11:00 11:00 WBC 6.4 (4.8-10.8) X10*3/uL RBC 4.17 L (4.60-5.80) X10*6/uL Hgb 12.4 L (14.0-18.0) g/dl Hct 36.4 L (42.0-52.0) % MCV 87.3 (80.0-98.0) fL MCH 29.7 (27.0-33.0) pg MCHC 34.1 (31.0-36.0) g/dl RDW 11.5 (11.0-16.0) % Plt Count 233 (160-400) X10*3/uL MPV 9.4 (9.4-12.4) fL Immature Gran % (Auto) 0.6 H (0.0-0.4) % Neut % (Auto) 60.1 (45-73) % Lymph % (Auto) 25.9 (20-40) % [place] % (Auto) 8.2 (2-11) % Eos % (Auto) 4.0 (0-4) % Baso % (Auto) 1.2 (0-2) % Lymph # (Auto) 1.7 (1.2-4.9) X10*3/uL [place] # (Auto) 0.5 (0.1-1.2) X10*3/uL Eos # (Auto) 0.3 (0.0-0.4) X10*3/uL Baso # (Auto) 0.1 (0.0-0.2) X10*3/uL Abs Immat Gran (auto) 0.04 H (0.00-0.03) X10*3/uL Absolute Neuts (auto) 3.9 (2.0-8.3) x10*3/uL Absolute Nucleated RBC 0.000 (0.0-0.012) X10*3/uL Nucleated RBC % (auto) 0.0 (0.0-0.2) /100WBC Sodium 136 (135-145) mmol/L Potassium 4.1 (3.3-5.1) mmol/L Chloride 103 (96-108) mmol/L Carbon Dioxide 27 (22-29) mmol/L Anion Gap 10 L (12-20) BUN 5 L (9-16) mg/dL Creatinine 0.89 (0.5-1.4) mg/dL Estim Creat Clear Calc 91.1 Estimated GFR > 60 Random Glucose 117 H D (60-115) mg/dL Calcium 9.4 (8.4-10.2) mg/dL Total Bilirubin 0.3 (0.0-1.0) mg/dL AST 20 (5-37) U/L ALT 15 (0-40) U/L Alkaline Phosphatase 98 (39-117) U/L Total Protein 6.9 (6.5-8.0) g/dL Albumin 4.2 (3.5-5.0) g/dL Ethyl Alcohol 179 mg/dL Discharge Plan Discharge Clinical Impression: Alcoholic intoxication Patient Disposition: Home, Self-Care Prescriptions: No Action pioglitazone 15 mg tablet 15 mg PO DAILY RF: 0 glyburide 5 mg tablet 5 mg PO DAILY RF: 0 famotidine 20 mg tablet 20 mg PO BID RF: 0 fluphenazine decanoate 25 mg/mL solution 50 mg IM Q2W RF: 0 lisinopril 10 mg tablet 10 mg PO DAILY RF: 0 benztropine 1 mg tablet 1 mg PO BID RF: 0 metformin 500 mg tablet extended release 24 hr 500 mg PO BID RF: 0 fluphenazine HCl 5 mg tablet 5 mg PO DAILY RF: 0
[2021-04-29 11:05] LABS: MANUAL DIFF FLAG NO
[2021-04-29 11:09] LABS: Basophils Absolute Auto 0.1 X10*3/uL (0.0-0.2); Basophils Percent Auto 1.2 % (0-2); Eosinophils Absolute Auto 0.3 X10*3/uL (0.0-0.4); Hematocrit 36.4 % (42.0-52.0); Hemoglobin 12.4 g/dl (14.0-18.0); Imm Gran Abs Auto 0.04 X10*3/uL (0.00-0.03); Imm Gran Pct Auto 0.6 % (0.0-0.4); Lymphocytes Absolute Auto 1.7 X10*3/uL (1.2-4.9); Lymphocytes Percent Auto 25.9 % (20-40); Mean Corpuscular HGB Conc 34.1 g/dl (31.0-36.0); Mean Corpuscular Hemoglobin 29.7 pg (27.0-33.0); Mean Corpuscular Volume 87.3 fL (80.0-98.0); Mean Platelet Volume 9.4 fL (9.4-12.4); Monocytes Absolute Auto 0.5 X10*3/uL (0.1-1.2); Monocytes Percent Auto 8.2 % (2-11); Neutrophils Absolute Auto 3.9 x10*3/uL (2.0-8.3); Neutrophils Percent Auto 60.1 % (45-73); Platelet Count 233 X10*3/uL (160-400); Red Blood Count 4.17 X10*6/uL (4.60-5.80); Red Cell Distribution Width 11.5 % (11.0-16.0); White Blood Count 6.4 X10*3/uL (4.8-10.8)
[2021-04-29 11:28] LABS: Ethanol 179 mg/dL
[2021-04-29 11:32] LABS: Alanine Aminotransferase 15 U/L (0-40); Albumin Level 4.2 g/dL (3.5-5.0); Alkaline Phosphatase 98 U/L (39-117); Anion Gap 10 (12-20); Aspartate Amino Transferase 20 U/L (5-37); Bilirubin Total 0.3 mg/dL (0.0-1.0); Blood Urea Nitrogen 5 mg/dL (9-16); Calcium 9.4 mg/dL (8.4-10.2); Carbon Dioxide 27 mmol/L (22-29); Chloride 103 mmol/L (96-108); Creatinine Clr Calc Pharmacy 91.1; Estimated Glomerular Filt Rate > 60; Glucose Random 117 mg/dL (60-115); Potassium 4.1 mmol/L (3.3-5.1); Sodium 136 mmol/L (135-145); Total Protein 6.9 g/dL (6.5-8.0)
--- NOTE | 2021-04-29 12:23 | PC.NURSE ---
care team to speak with pt. wale brother contacted no answer
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
--- NOTE | 2021-04-29 14:05 | PC.NURSE ---
Pt received: Pt inebriated and shown in alcohol blood level. Pt very angry and needs use for speech language specialist. Pt constantly up at bedside and refusing to sit down. Pt pt as per reason of triage: HI towards neighbir.
--- NOTE | 2021-04-29 15:24 | PC.NURSE ---
smart sheet sent to [facility]
--- NOTE | 2021-04-29 15:55 | MHC.RECOVSUP ---
Recovery Support note: This copywriter met with patient with an [facility] alarm signal operator to discuss substance use. Patient reports drinking 1-2 beers today and denies other substance use. Patient vaguely implies that it is the devil that makes him drink. Patient is not interested in detox. Patient reports he would like to go home, eat and shower. Patient complains that the food here is terrible. Patient would not elaborate on the situation that occurred prior to arriving at the ED. Discussed case with patient's ED provider.
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
--- NOTE | 2021-04-29 19:21 | PC.NURSE ---
This RN spoke with the PT using automatic screwmaker. PT stated that he has no one to call for a ride home. This RN spoke to CARE team and Colleen stated that she would help to coordinate a ride home using [employer] services.
[2021-04-29 19:23] VITALS: BP 151/87; PULSE 88; RESP 16; TEMP 37.2; O2SAT 97
[2021-04-29 19:43] LABS: COVID-19 Test Negative (Negative)
== END 2021-04-29 19:53 | disposition home or self-care (01) ==
PROVIDERS: Emergency Medicine; Emergency Provider Emergency Medicine
DX: F10.920 Alcohol use, unspecified with intoxication, uncomplicated (principal); Y90.6 Blood alcohol level of 120-199 mg/100 ml; R45.1 Restlessness and agitation; F20.9 Schizophrenia, unspecified; Z20.822 Contact with and (suspected) exposure to COVID-19; E11.9 Type 2 diabetes mellitus without complications; I10 Essential (primary) hypertension; F17.200 Nicotine dependence, unspecified, uncomplicated; Z79.899 Other long term (current) drug therapy
CPT/HCPCS: 36415; 80053; 82077; 85025; 87635; 99284

== ENCOUNTER 2021-08-16 00:16 | Inpatient (IN) | payer OTHER, SELFPAY ==
--- NOTE | 2021-08-16 | ECG_ITS ---
Test Reason : COCAINE USE Blood Pressure : / mmHG Vent. Rate : 088 BPM Atrial Rate : 088 BPM P-R Int : 156 ms QRS Dur : 074 ms QT Int : 372 ms P-R-T Axes : 042 051 128 degrees QTc Int : 450 ms Normal sinus rhythm ST & T wave abnormality, consider lateral ischemia Abnormal ECG When compared with ECG of 31-JUL-2020 16:13, No significant change was found Referred By: Hector Cooper Electronically Signed By:MELISSA JOSEPH MD
--- NOTE | ~2021-08-16 | CT_ITS ---
EXAMINATION: CT HEAD WITHOUT CONTRAST CLINICAL INFORMATION: Altered mental status. COMPARISON: CT brain 07/31/2020 TECHNIQUE: Contiguous axial imaging was performed from the skull base to vertex without intravenous administration of contrast. This CT examination was performed using dose optimization techniques as appropriate, variously including the following: *Automated exposure control *Adjustment of mA and/or kV according to patient size (this includes techniques or standardized protocols for targeted exams where dose is matched to indication/reason for exam; i.e. extremities or head) *Use of iterative reconstruction technique DLP: 698 mGy-cm FINDINGS: There is no evidence of acute intracranial hemorrhage or territorial infarction. No abnormal mass effect or midline shift is seen. Hirsch to white matter differentiation is well preserved. No extra-axial fluid collections are identified. The ventricles are normal in size. There is no abnormal attenuation within the brain parenchyma. The osseous structures and soft tissues are normal. The mastoid air cells and visualized portions of the paranasal sinuses are well aerated. CT/CT head/brain wo con IMPRESSION: No acute intracranial process seen. No change from previous exam 07/31/2020
--- NOTE | 2021-08-16 00:25 | ED.PSYCH ---
HPI - Psych General Stated Complaint: SI Time Seen by Provider: 08/16/21 00:20 Source: patient and EMS Mode of arrival: EMS Limitations: other (Intoxicated) History of Present Illness HPI Narrative: Patient comes to the emergency room via EMS. Seems that the patient made some suicidal statements to his brother, who called EMS. Patient states that he has been feeling sad, drinking a lot of alcohol, admits to feeling suicidal, not homicidal. Patient is too intoxicated to give any further history. Related Data Home Medications Medication Instructions Recorded Confirmed benztropine 1 mg tablet 1 mg PO BID 07/31/20 07/31/20 famotidine 20 mg tablet 20 mg PO BID 07/31/20 07/31/20 fluphenazine HCl 5 mg tablet 5 mg PO DAILY 07/31/20 07/31/20 fluphenazine decanoate 25 mg/mL 50 mg IM Q2W 07/31/20 07/31/20 injection solution glyburide 5 mg tablet 5 mg PO DAILY 07/31/20 07/31/20 lisinopril 10 mg tablet 10 mg PO DAILY 07/31/20 07/31/20 metformin 500 mg tablet,extended 500 mg PO BID 07/31/20 07/31/20 release 24 hr pioglitazone 15 mg tablet 15 mg PO DAILY 07/31/20 07/31/20 Allergies Allergy/AdvReac Type Severity Reaction Status Date / Time haloperidol [From HALDOL] Allergy Unknown UNKNOWN Verified 07/31/20 21:19 lithium [[place]] Allergy Unknown UNKNOWN Verified 07/31/20 21:19 risperidone [From RISPERDAL] Allergy Unknown UNKNOWN Verified 07/31/20 21:19 [place] Carbonate Allergy Unknown Unknown Uncoded 07/31/20 21:19 Review of Systems Review of Systems: Yes Other (Alcohol intoxication) PENDING SALE TO [facility] Past Medical History Medical History (Updated 08/16/21 @ 00:28 by Alysia Kunz MD) Alcohol abuse Diabetes HTN (hypertension) Schizophrenia Social History Social History Alcohol intake: current Alcohol intake frequency: 3 or more drinks per day Alcohol type: beer Patient Tobacco Use Status: Current everyday Tobacco user Substance Use Type: Crack/Cocaine Physical Exam Const: Other: Appearance: Alert. Oriented X3. No acute distress. Intoxicated Eyes: Pupils equal, round and reactive to light. ENT: Pharynx normal. Neck: Normal inspection. Neck supple. No lymph nodes noted. No crepitus CVS: Normal heart rate and rhythm. Pulses normal. Normal S1 and S2 Respiratory: No respiratory distress. Breath sounds normal. No Wheezing. No rales Abdomen: Soft and nontender. No rigidity. No distention. Skin: Skin warm and dry. Normal skin color. Normal skin turgor. Extremities: No lower extremity edema. No Lacerations. No Rash Neuro: Oriented X 3. No motor deficit. No sensory deficit. Moving all extremities. No slurred speech. CN 2 through 12 grossly intact Psych: calm, cooperative, patient is intoxicated, answers yes to all the questions denies homicidal ideation. Course Course Course Narrative: At this time, patient is clinically intoxicated, not much history was obtained from the patient. Patient is calm and cooperative. Patient will be evaluated by N in the morning after he is sober Physician observation started at 00:25 Discharge Plan Discharge Clinical Impression: Alcohol intoxication, Suicidal ideation Patient Disposition: Still a Patient Prescriptions: No Action pioglitazone 15 mg tablet 15 mg PO DAILY 0RF glyburide 5 mg tablet 5 mg PO DAILY 0RF famotidine 20 mg tablet 20 mg PO BID 0RF fluphenazine decanoate 25 mg/mL solution 50 mg IM Q2W 0RF Rx Instructions: called md already for timing lisinopril 10 mg tablet 10 mg PO DAILY 0RF benztropine 1 mg tablet 1 mg PO BID 0RF metformin 500 mg tablet extended release 24 hr 500 mg PO BID 0RF fluphenazine HCl 5 mg tablet 5 mg PO DAILY 0RF
[2021-08-16 00:26] VITALS: BP 123/68; PULSE 90; RESP 16; TEMP 36.3; O2SAT 98; BMI 26.6
[2021-08-16 00:54] LABS: MANUAL DIFF FLAG NO
[2021-08-16 00:55] LABS: Basophils Absolute Auto 0.1 X10*3/uL (0.0-0.2); Basophils Percent Auto 0.9 % (0-2); Eosinophils Absolute Auto 0.2 X10*3/uL (0.0-0.4); Eosinophils Percent Auto 2.7 % (0-4); Hematocrit 39.5 % (42.0-52.0); Hemoglobin 13.4 g/dl (14.0-18.0); Imm Gran Abs Auto 0.07 X10*3/uL (0.00-0.03); Imm Gran Pct Auto 0.9 % (0.0-0.4); Mean Corpuscular HGB Conc 33.9 g/dl (31.0-36.0); Mean Corpuscular Volume 88.6 fL (80.0-98.0); Monocytes Absolute Auto 0.6 X10*3/uL (0.1-1.2); Neutrophils Absolute Auto 4.8 x10*3/uL (2.0-8.3); Neutrophils Percent Auto 61.5 % (45-73); Platelet Count 218 X10*3/uL (160-400); Red Blood Count 4.46 X10*6/uL (4.60-5.80); Red Cell Distribution Width 11.9 % (11.0-16.0); White Blood Count 7.7 X10*3/uL (4.8-10.8)
[2021-08-16 00:59] VITALS: BP 123/68; PULSE 90; RESP 16; TEMP 36.3; O2SAT 98
[2021-08-16 01:09] LABS: COVID-19 Test Negative (Negative)
[2021-08-16 02:47] LABS: Anion Gap 11 (12-20); Blood Urea Nitrogen 11 mg/dL (9-16); Carbon Dioxide 27 mmol/L (22-29); Chloride 99 mmol/L (96-108); Creatinine Clr Calc Pharmacy 74.6; Estimated Glomerular Filt Rate > 60; Ethanol < 10 mg/dL; Potassium 3.9 mmol/L (3.3-5.1); Sodium 133 mmol/L (135-145)
[2021-08-16 02:48] LABS: Alanine Aminotransferase 15 U/L (0-40); Albumin Level 3.9 g/dL (3.5-5.0); Alkaline Phosphatase 132 U/L (39-117); Aspartate Amino Transferase 16 U/L (5-37); Bilirubin Direct 0.2 mg/dL (0.0-0.5); Bilirubin Total 0.4 mg/dL (0.0-1.0); Calcium 9.8 mg/dL (8.4-10.2); Glucose Random 276 mg/dL (60-115); Total Protein 6.4 g/dL (6.5-8.0)
[2021-08-16 03:37] LABS: Appearance Urine CLEAR; Color Urine YELLOW; Glucose Urine UA NEG (NEG); Leukocyte Esterase Urine NEG (NEG); Nitrite Urine NEG (NEG); Specific Gravity - Urine <= 1.005 (1.005-1.025); Urine Blood NEG (NEG); Urine Ketones NEG (NEG); Urine Protein NEG (NEG-TRACE)
[2021-08-16 03:49] LABS: Amphetamine Screen Urine Not Detected (Not Detect); Barbiturates, Urine Not Detected (Not Detect); Benzodiazepines Screen Urine Not Detected (Not Detect); Cannabinoid Screen Urine Not Detected (Not Detect); Cocaine Screen Urine POSITIVE (Not Detect); Fentanyl, urine Not Detected (Not Detect); Opiate Screen Urine Not Detected (Not Detect); Phencyclidine Screen Urine Not Detected (Not Detect)
[2021-08-16 05:00] VITALS: RESP 16
--- NOTE | 2021-08-16 05:36 | PC.NURSE ---
Patient slept through the night, no distress observed/ reported, patient is Maori speaking only, [facility] referral completed/confirmed/pending evaluation in first shift, patient is confused, unable to answer where he lives, reported his devil bed is bothering him, patient is not fully coherent, will continue to monitor.
[2021-08-16 08:47] VITALS: RESP 16
[2021-08-16] MEDS: OLANZapine 10 MG TABLET PO ×2 (10:59→16:08)
[2021-08-16] MEDS: Nicotine 21 MG PATCH.TD24 TRANSDERMA (10:59)
--- NOTE | 2021-08-16 11:02 | PHA.MEDREC ---
Pharmacy Consult ? Medication Reconciliation Pharmacy has completed the medication reconciliation. Med rec complete per claim history. Patient brother was contacted but no answer. pt currently has security by bedside as the patient is agitated. Will try to speak with patient again at a later time when more calm. Will need to find out last dose of fluphenazine IM as well.
[2021-08-16] MEDS: lisinopriL 10 MG TABLET PO (11:55)
[2021-08-16] MEDS: glyBURIDE 5 MG TABLET PO (11:55)
--- NOTE | 2021-08-16 16:27 | PC.NURSE ---
Patient yelling, agitated, unable to be redirected by staff. Confused, unable to state where he is, why he's here, or provide month or year. Spoke to ED physician, PRN PO dose of zyprexa ordered and administered.
[2021-08-16 18:27] VITALS: BP 152/71; PULSE 78; RESP 18; TEMP 36.6; O2SAT 98
[2021-08-16] MEDS: Famotidine 20 MG TABLET PO (21:33)
[2021-08-16] MEDS: traZODone HCL 50 MG TABLET PO (21:33)
[2021-08-16] MEDS: Benztropine Mesylate 1 MG TABLET PO (21:33)
[2021-08-16] MEDS: metFORMIN HCl ER 500 MG TAB.ER.24H 1000 MG PO (21:33)
[2021-08-16 23:00] VITALS: BP 141/74; PULSE 89; TEMP 36.3; O2SAT 97
[2021-08-16] MEDS: fluPHENAZine HCl 5 MG TABLET PO (23:19)
[2021-08-16] MEDS: hydrOXYzine HCL 50 MG TABLET PO (23:20)
[2021-08-17 00:26] VITALS: BMI 28.8
--- NOTE | 2021-08-17 02:03 | PC.ADMIT ---
admission date 08/16/21-this is the first behavioral health admission at [facility] and perhaps only the second inpatient admission for this 56 year old Argentine speaking male. Legal: 12b but signed CV on arrival to unit. rug scratcher services utilized for orientation and assessment process. DX: major depression, cocaine/alcohol use d/o. patient is well known to the ER. he is frequently seen due to drinking and behaviors related to drinking. was a referral from the ER and the CARE team. patient has services in place such as VNA and has a BOAT BUILDER AND REPAIRER. PCP unknown but medicine HX has David Ricks and Ladonna Villarreal as prescribers but program unknown to t/w. medication reconciliation done when in the ER. QUEZADA + for cocaine. patient reports ''I had a little a friend gave it to me'' denies alcohol intake prior to coming in and added ''it depends upon the money'' and makes a gesture with his hands indicating money. BAL <10. is on CIWA. patient identifies that he wants to smoke cigarettes. rug scratcher reports that he is not always responding to questions asked possibly due to confusion or avoidance of questions. denies SI/HI. denies any hx of harm to self or others. identifies feelings of ''anxiety'' medical HX of HTN, NIDDM. safety tool completed. tx plan initiated.
[2021-08-17 05:00] VITALS: BP 124/96; PULSE 106; O2SAT 97
--- NOTE | 2021-08-17 05:19 | PC.NURSE ---
CIWA-patient comes in with HX of some confusion. orientation difficult to assess in relationship with CIWA scale because of this.
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
[2021-08-17] MEDS: OLANZapine 10 MG TABLET PO (06:38)
[2021-08-17] MEDS: glyBURIDE 5 MG TABLET PO (06:53)
[2021-08-17] MEDS: Famotidine 20 MG TABLET PO (08:47)
[2021-08-17] MEDS: fluPHENAZine HCl 5 MG TABLET PO (08:47)
[2021-08-17] MEDS: Benztropine Mesylate 1 MG TABLET PO (08:47)
[2021-08-17] MEDS: lisinopriL 10 MG TABLET PO (10:30)
[2021-08-17] MEDS: metFORMIN HCl ER 500 MG TAB.ER.24H 1000 MG PO (10:30)
--- NOTE | 2021-08-17 11:30 | HO.PSYADMNOT ---
HPI Date of Service: 08/17/21 Chief Complaint: psychotic sx Sources of Information: patient interviewed, chart reviewed and crisis/core team assessment reviewed HPI Subjective Notes: Conditional Voluntary Narrative: Pt was BIBA after expressing SI and wandering with no shoes. Also his brother stated he has been drinking heavily. Told his PCAhe was sad but apparently does not have aHx of HI/SI. In ED was noted to be incoherent disorganized, made bizarre statements that he was then alive. Ivernight on M3 he has been on Close obs, restless, agitated, wandering into rooms, showing picking behavior., talking to him and visually hallucinating. He looks intently at room alberts and sppecch is completely incomprehensible een with an official court interpreter. He is disoriented and confused. Appreciate hospitalist consultation for medical transfer. 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 Likely psychotic disorder. Received Haldol dec shot last week. Medical Evaluation Reviewed: Yes [facility] Medical History Alcohol abuse Diabetes HTN (hypertension) Schizophrenia Family History: unobtainable Social History: Unclear living situation. 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 Brother is next of kin Substance History: ETOH use disorder. Cocaine + Trauma History: unknown Diagnostics Vital Signs (24Hr): Vital Signs - 24 hr 08/16/21 18:27 08/16/21 23:00 08/17/21 05:00 Temperature 97.9 F 97.4 F Pulse Rate 78 89 106 H Respiratory Rate 18 Blood Pressure 152/71 H 141/74 H 124/96 H Pulse Oximetry 98 97 97 BMI result Body Mass Index 28.8 Labs Results: 08/16/21 00:49 08/16/21 00:49 Labs: Laboratory Results - last 48 hr 08/16/21 08/16/21 08/16/21 00:43 00:49 00:49 WBC 7.7 RBC 4.46 L Hgb 13.4 L Hct 39.5 L MCV 88.6 MCH 30.0 MCHC 33.9 RDW 11.9 Plt Count 218 MPV 10.0 Immature Gran % (Auto) 0.9 H Neut % (Auto) 61.5 Lymph % (Auto) 26.0 Leake % (Auto) 8.0 Eos % (Auto) 2.7 Baso % (Auto) 0.9 Lymph # (Auto) 2.0 [place]ake # (Auto) 0.6 Eos # (Auto) 0.2 Baso # (Auto) 0.1 Abs Immat Gran (auto) 0.07 H Absolute Neuts (auto) 4.8 Absolute Nucleated RBC 0.000 Nucleated RBC % (auto) 0.0 Sodium Potassium Chloride Carbon Dioxide Anion Gap BUN Creatinine Estim Creat Clear Calc Estimated GFR Random Glucose Calcium Total Bilirubin Direct Bilirubin AST ALT Alkaline Phosphatase Total Protein Albumin Urine Color Urine Appearance Urine pH Ur Specific [place] Urine Protein Urine Glucose (UA) Urine Ketones Urine Blood Urine Nitrite Ur Leukocyte Esterase Urine Opiates Screen Urine Fentanyl Screen Ur Barbiturates Screen Ur Phencyclidine Scrn Ur Amphetamines Screen U Benzodiazepines Scrn Urine Cocaine Screen U Marijuana (THC) Screen Ethyl Alcohol < 10 COVID-19 ([facility]) Negative COVID-19 [facility] See Note 08/16/21 08/16/21 08/16/21 00:49 03:20 03:20 WBC RBC Hgb Hct MCV MCH MCHC RDW Plt Count MPV Immature Gran % (Auto) Neut % (Auto) Lymph % (Auto) [place] % (Auto) Eos % (Auto) Baso % (Auto) Lymph # (Auto) [place] # (Auto) Eos # (Auto) Baso # (Auto) Abs Immat Gran (auto) Absolute Neuts (auto) Absolute Nucleated RBC Nucleated RBC % (auto) Sodium 133 L Potassium 3.9 Chloride 99 Carbon Dioxide 27 Anion Gap 11 L BUN 11 D Creatinine 0.95 Estim Creat Clear Calc 74.6 Estimated GFR > 60 Random Glucose 276 H D Calcium 9.8 Total Bilirubin 0.4 Direct Bilirubin 0.2 AST 16 ALT 15 Alkaline Phosphatase 132 H D Total Protein 6.4 L Albumin 3.9 Urine Color YELLOW Urine Appearance CLEAR Urine pH 6.0 Ur Specific [place] <= 1.005 Urine Protein NEG Urine Glucose (UA) NEG Urine Ketones NEG Urine Blood NEG Urine Nitrite NEG Ur Leukocyte Esterase NEG Urine Opiates Screen Not Detected Urine Fentanyl Screen Not Detected Ur Barbiturates Screen Not Detected Ur Phencyclidine Scrn Not Detected Ur Amphetamines Screen Not Detected U Benzodiazepines Scrn Not Detected Urine Cocaine Screen POSITIVE H U Marijuana (THC) Screen Not Detected Ethyl Alcohol COVID-19 (NITHIN) COVID-19 Clin Com Imaging Radiology Impressions: ITS Impressions Head CT 08/16/21 21:45 IMPRESSION: No acute intracranial process seen. No change from previous exam 07/31/2020 Meds/Allergies Meds Home Medications Acetaminophen (Acetaminophen 325 Mg Tablet) 650 mg PO Q6H PRN PRN Reason: Headache/Pain Mild Scale (1-3) Al Hydroxide/Mg Hydroxide (Magnesium Hydrox/Alum Hydrox 30 Ml Oral.Susp) 30 ml PO Q6H PRN PRN Reason: Heartburn/Nausea Benztropine Mesylate (Benztropine Mesylate 1 Mg Tablet) 1 mg PO BID [facility] Last Admin: 08/17/21 08:47 Dose: 1 mg Documented by: Famotidine (Famotidine 20 Mg Tablet) 20 mg PO BID [facility] Last Admin: 08/17/21 08:47 Dose: 20 mg Documented by: Fluphenazine Decanoate (Fluphenazine Decanoate 25 Mg/Ml 5 Ml Vial) 50 mg IM Q2W [facility] Fluphenazine HCl (Fluphenazine Hcl 5 Mg Tablet) 5 mg PO BID [facility] Last Admin: 08/17/21 08:47 Dose: 5 mg Documented by: Folic Acid (Folic Acid 1 Mg Tablet) 1 mg PO DAILY [facility] Last Admin: 08/17/21 12:09 Dose: Not Given Documented by: Glyburide (Glyburide 5 Mg Tablet) 5 mg PO DAILY@0630 [facility] Last Admin: 08/17/21 06:53 Dose: 5 mg Documented by: Hydroxyzine HCl (Hydroxyzine Hcl 50 Mg Tablet) 50 mg PO BID PRN PRN Reason: anxiety Last Admin: 08/16/21 23:20 Dose: 50 mg Documented by: Lisinopril (Lisinopril 10 Mg Tablet) 10 mg PO DAILY [facility]; Protocol Last Admin: 08/17/21 10:30 Dose: 10 mg Documented by: Magnesium Hydroxide (Milk Of Magnesia 30 Ml Oral.Susp) 30 ml PO DAILY PRN PRN Reason: Constipation Metformin HCl (Metformin Hcl Er 500 Mg Tab.Er.24h) 1,000 mg PO BID [facility] Last Admin: 08/17/21 10:30 Dose: 1,000 mg Documented by: Multivitamins/Vitamin C (Multivitamin Tablet) 1 tab PO DAILY [facility] Last Admin: 08/17/21 12:09 Dose: Not Given Documented by: Nicotine (Nicotine 21 Mg Patch.Td24) 21 mg TRANSDERMA DAILY [facility] Last Admin: 08/17/21 12:08 Dose: Not Given Documented by: Olanzapine (Olanzapine 10 Mg Tablet) 10 mg PO BID PRN PRN Reason: Agitation Last Admin: 08/17/21 06:38 Dose: 10 mg Documented by: Pharmacy Consult (Consult Rx Etoh Phenob Po Dose) 1 each MISCELLANE ONCE PRN; Protocol PRN Reason: Consult order Phenobarbital 100 mg/ (Phenobarbital 90 mg) 190 mg PO Q3H [facility] Stop: 08/17/21 20:01 Phenobarbital (Phenobarbital 15 Mg Tablet) 45 mg PO BID [facility] Stop: 08/19/21 21:01 Phenobarbital (Phenobarbital 15 Mg Tablet) 15 mg PO BID [facility] Stop: 08/21/21 21:01 Phenobarbital (Phenobarbital 15 Mg Tablet) 15 mg PO DAILY [facility] Stop: 08/22/21 09:01 Pioglitazone HCl (Pioglitazone Hcl 15 Mg Tablet) 15 mg PO DAILY [facility] Last Admin: 08/17/21 08:47 Dose: 15 mg Documented by: Thiamine HCl (Thiamine Hcl 100 Mg Tablet) 100 mg PO DAILY [facility] Last Admin: 08/17/21 12:08 Dose: Not Given Documented by: Trazodone HCl (Trazodone Hcl 50 Mg Tablet) 50 mg PO BEDTIME PRN PRN Reason: insomnia Last Admin: 08/16/21 21:33 Dose: 50 mg Documented by: Allergies Allergies Allergy/AdvReac Type Severity Reaction Status Date / Time haloperidol [From HALDOL] Allergy Unknown UNKNOWN Verified 07/31/20 21:19 lithium [[place]] Allergy Unknown UNKNOWN Verified 07/31/20 21:19 risperidone [From RISPERDAL] Allergy Unknown UNKNOWN Verified 07/31/20 21:19 [place] Carbonate Allergy Unknown Unknown Uncoded 07/31/20 21:19 Mental Status Exam Mental Status Exam Patient Appearance: Disheveled Patient Orientation: Person and Situation (disoriented in all spheres) Level of Consciousness: Disoriented Patient Behavior: Wandering Mood Description: Anxious, Labile and Apprehensive Affect Description: Euphoric Patient Cognition Impaired: Yes Ability to Follow Directions: Poor Speech Pattern: Impoverished Hallucinations: Visual ([place] VH) Perceptual Disturbances: Hallucinations Thought Process: Disoriented Thought Content: positive for Suicidal Ideation Depressive Symptoms: Increased Anxiety Abnormal Motor Activity Signs and Symptoms: Agitation and Hyperactivity Judgement: Poor Assessment & Plan Patient educated on: substance abuse Informed Consent: does not understand Reason for continued inpatient stay Substantial Risk for: inability to function and med/psych decompensation
[2021-08-17 12:00] VITALS: BP 131/70; PULSE 111; TEMP 36.9; O2SAT 94
--- NOTE | 2021-08-17 12:15 | PC.NURSE ---
Patient continues confused, disorganized, unaware of situation or where he is. Dr. Biswas aware of current mental status. Patient appears to be hallucinating, picking things out of air. Medication given however patient spit medications into cup. Unable to assess fully at this time. [facility] currently 16. Seen on consult by Dr. Chapman.
[2021-08-17] MEDS: diazePAM 10 MG/2 ML CARTRIDGE IM (13:21)
[2021-08-17 16:07] LABS: Estimated Average Glucose 174 mg/dL; Hemoglobin A1c % 7.7 %
[2021-08-17 16:08] LABS: Cholesterol 168 mg/dL; HDL Cholesterol 55 mg/dL; LDL Cholesterol Calculated 93 mg/dl; Magnesium 1.8 mg/dL (1.6-2.6); Triglycerides 102 mg/dL
[2021-08-17 16:29] LABS: Free T4 (Free Thyroxine) 1.23 ng/dL (0.71-1.85); Thyroid Stimulating Hormone 1.39 uIU/mL (0.32-4.0)
--- NOTE | 2021-08-19 06:16 | PM.PSYDC ---
DS: Providers Provider Date of Service: 08/17/21 Date of admission: 08/16/21 22:17 Date of discharge: 08/17/21 Primary care physician: Unknown Physician Admitting clinician: Star Biswas Attending physician on admission: Star Biswas Consults: 08/17/21 11:53 Consult to Hospitalist Stat Consulting Provider: Raven Arevalo Reason For Exam: Delirium [place]ens ++. [facility] Attending physician on discharge: Star Biswas Discharging clinician: Star Biswas DS: Diagnosis Discharge Diagnosis (1) Alcohol withdrawal: Status: Acute (2) Cocaine abuse: Status: Acute (3) Suicidal ideation: Start date: 08/17/21 Start time: 11:00 Status: Acute DS: Medications Discharge Medications Home Medications: Home Medications Medication Instructions Recorded Confirmed benztropine 1 mg tablet 1 mg PO BID 07/31/20 08/17/21 famotidine 20 mg tablet 20 mg PO BID 07/31/20 08/17/21 fluphenazine HCl 5 mg tablet 5 mg PO BID 07/31/20 08/17/21 glyburide 5 mg tablet 5 mg PO DAILY@0630 07/31/20 08/17/21 pioglitazone 15 mg tablet 15 mg PO DAILY 07/31/20 08/17/21 fluphenazine decanoate 25 mg/mL 50 ml IM Q2W 08/16/21 08/17/21 injection solution hydroxyzine pamoate 50 mg capsule 1 cap PO BID PRN 08/16/21 08/17/21 lisinopril 10 mg tablet 1 tab PO DAILY 08/16/21 08/17/21 metformin 500 mg tablet,extended 1,000 mg PO BID 08/16/21 08/17/21 release 24hr thiamine HCl (vitamin B1) 100 mg 1 tab PO DAILY 08/16/21 08/17/21 tablet (Vitamin B-1) trazodone 50 mg tablet 1 tab PO BEDTIME PRN 08/16/21 08/17/21 Previous Rx's Medication Instructions Recorded folic acid 1 mg tablet 1 mg PO DAILY #30 tab 08/17/21 multivitamin (Daily-Areli) 1 tab PO DAILY #30 tab 08/17/21 nicotine 21 mg/24 hr daily 21 mg TRANSDERMAL DAILY 28 Days 08/17/21 transdermal patch #28 ea thiamine mononitrate (vit B1) 100 100 mg PO DAILY #30 tab 08/17/21 mg tablet Mental Status Exam Mental Status Exam Patient Appearance: Disheveled, Inappropriate, Perspiring and Unkempt Level of Consciousness: Disoriented and Restless Patient Behavior: Confused Mood Description: Labile Affect Description: Suspicious Ability to Follow Directions: Poor Speech Pattern: Slurred Memory Description: Remote Impaired, Immediate Impaired and Working Impaired Hallucinations: Visual Thought Process: Disoriented Thought Content: positive for Disoriented Depressive Symptoms: Diff. Making Decisions Abnormal Motor Activity Signs and Symptoms: Hyperactivity and Restlessness Judgement: Poor Data Data Completed and Pending Completed studies during hospitalization [Text1]: 08/16/21 08/16/21 08/16/21 00:43 00:49 00:49 WBC 7.7 RBC 4.46 L Hgb 13.4 L Hct 39.5 L MCV 88.6 MCH 30.0 MCHC 33.9 RDW 11.9 Plt Count 218 MPV 10.0 Immature Gran % (Auto) 0.9 H Neut % (Auto) 61.5 Lymph % (Auto) 26.0 [place] % (Auto) 8.0 Eos % (Auto) 2.7 Baso % (Auto) 0.9 Lymph # (Auto) 2.0 [place] # (Auto) 0.6 Eos # (Auto) 0.2 Baso # (Auto) 0.1 Abs Immat Gran (auto) 0.07 H Absolute Neuts (auto) 4.8 Absolute Nucleated RBC 0.000 Nucleated RBC % (auto) 0.0 Sodium Potassium Chloride Carbon Dioxide Anion Gap BUN Creatinine Estim Creat Clear Calc Estimated GFR Random Glucose Estimat Average Glucose Hemoglobin A1c % Calcium Magnesium Total Bilirubin Direct Bilirubin AST ALT Alkaline Phosphatase Total Protein Albumin Triglycerides Cholesterol LDL Cholesterol, Calc HDL Cholesterol Vitamin B12 Folate TSH Free T4 Urine Color Urine Appearance Urine pH Ur Specific [place] Urine Protein Urine Glucose (UA) Urine Ketones Urine Blood Urine Nitrite Ur Leukocyte Esterase Urine Opiates Screen Urine Fentanyl Screen Ur Barbiturates Screen Ur Phencyclidine Scrn Ur Amphetamines Screen U Benzodiazepines Scrn Urine Cocaine Screen U Marijuana (THC) Screen Ethyl Alcohol < 10 COVID-19 (NITHIN) Negative COVID-19 Clin Com See Note 08/16/21 08/16/21 08/16/21 00:49 03:20 03:20 WBC RBC Hgb Hct MCV MCH MCHC RDW Plt Count MPV Immature Gran % (Auto) Neut % (Auto) Lymph % (Auto) [place] % (Auto) Eos % (Auto) Baso % (Auto) Lymph # (Auto) [place] # (Auto) Eos # (Auto) Baso # (Auto) Abs Immat Gran (auto) Absolute Neuts (auto) Absolute Nucleated RBC Nucleated RBC % (auto) Sodium 133 L Potassium 3.9 Chloride 99 Carbon Dioxide 27 Anion Gap 11 L BUN 11 D Creatinine 0.95 Estim Creat Clear Calc 74.6 Estimated GFR > 60 Random Glucose 276 H D Estimat Average Glucose Hemoglobin A1c % Calcium 9.8 Magnesium Total Bilirubin 0.4 Direct Bilirubin 0.2 AST 16 ALT 15 Alkaline Phosphatase 132 H D Total Protein 6.4 L Albumin 3.9 Triglycerides Cholesterol LDL Cholesterol, Calc HDL Cholesterol Vitamin B12 Folate TSH Free T4 Urine Color YELLOW Urine Appearance CLEAR Urine pH 6.0 Ur Specific [place] <= 1.005 Urine Protein NEG Urine Glucose (UA) NEG Urine Ketones NEG Urine Blood NEG Urine Nitrite NEG Ur Leukocyte Esterase NEG Urine Opiates Screen Not Detected Urine Fentanyl Screen Not Detected Ur Barbiturates Screen Not Detected Ur Phencyclidine Scrn Not Detected Ur Amphetamines Screen Not Detected U Benzodiazepines Scrn Not Detected Urine Cocaine Screen POSITIVE H U Marijuana (THC) Screen Not Detected Ethyl Alcohol COVID-19 (NITHIN) COVID-19 Clin Com 08/17/21 08/17/21 08/17/21 15:37 15:37 15:37 WBC RBC Hgb Hct MCV MCH MCHC RDW Plt Count MPV Immature Gran % (Auto) Neut % (Auto) Lymph % (Auto) [place] % (Auto) Eos % (Auto) Baso % (Auto) Lymph # (Auto) [place] # (Auto) Eos # (Auto) Baso # (Auto) Abs Immat Gran (auto) Absolute Neuts (auto) Absolute Nucleated RBC Nucleated RBC % (auto) Sodium Potassium Chloride Carbon Dioxide Anion Gap BUN Creatinine Estim Creat Clear Calc Estimated GFR Random Glucose Estimat Average Glucose 174 Hemoglobin A1c % 7.7 Calcium Magnesium 1.8 Total Bilirubin Direct Bilirubin AST ALT Alkaline Phosphatase Total Protein Albumin Triglycerides 102 Cholesterol 168 LDL Cholesterol, Calc 93 HDL Cholesterol 55 Vitamin B12 Pending Folate Pending TSH 1.39 Free T4 1.23 Urine Color Urine Appearance Urine pH Ur Specific [place] Urine Protein Urine Glucose (UA) Urine Ketones Urine Blood Urine Nitrite Ur Leukocyte Esterase Urine Opiates Screen Urine Fentanyl Screen Ur Barbiturates Screen Ur Phencyclidine Scrn Ur Amphetamines Screen U Benzodiazepines Scrn Urine Cocaine Screen U Marijuana (THC) Screen Ethyl Alcohol COVID-19 (INTHIN) COVID-19 Clin Com Imaging Diagnostic Imaging Impressions Head CT 08/16/21 21:45 IMPRESSION: No acute intracranial process seen. No change from previous exam 07/31/2020 DS: Summary Hospital Course Hospital Course: Patient was admitted for confusion and stated SI. However soon went into severe ETOH withdrawal delirium. Noted to be confused/ incoherent and floridly hallucinating. M Hospitalist service saw patient and transferred to Medical service for Phenobarb protocol Time spent discussing smoking cessation with patient: more than 10 minutes Status at Discharge Cognitive/behavioral status at discharge: confused/ hallucinating Functional status at discharge: independent ambulation Overall status at discharge: other (in delirium tremens) Time Spent with Patient Time attestation: Total time spent providing and/or coordinating discharge services: 45 mins Time spent: Greater than 30 minutes Discharge Plan Discharge Anticipated Discharge Date/Time: 08/17/21 12:29 Patient Disposition: er Acute Care Hospital Discharge Diagnosis: Alcohol Withdrawal Delirium Referrals: [place] [Physician] - 1 Week Discharge Medications: New multivitamin [Daily-Areli] Tablet 1 tab PO DAILY Qty: 30 0RF nicotine 21 mg/24 hr Patch 24 Hour 21 mg transdermal DAILY 28 Days Qty: 28 0RF folic acid 1 mg Tablet 1 mg PO DAILY Qty: 30 0RF thiamine mononitrate (vit B1) 100 mg Tablet 100 mg PO DAILY Qty: 30 0RF Continued pioglitazone 15 mg tablet 15 mg PO DAILY 0RF glyburide 5 mg tablet 5 mg PO DAILY@0630 0RF famotidine 20 mg tablet 20 mg PO BID 0RF benztropine 1 mg tablet 1 mg PO BID 0RF fluphenazine HCl 5 mg tablet 5 mg PO BID 0RF fluphenazine decanoate 25 mg/mL solution 50 ml IM Q2W 0RF trazodone 50 mg tablet 1 tab PO BEDTIME PRN (Reason: insomnia) 0RF lisinopril 10 mg tablet 1 tab PO DAILY 0RF thiamine HCl (vitamin B1) [Vitamin B-1] 100 mg tablet 1 tab PO DAILY 0RF hydroxyzine pamoate 50 mg capsule 1 cap PO BID PRN (Reason: anxiety) 0RF metformin 500 mg Tablet Extended Release 24hr 1,000 mg PO BID 0RF Discharge Orders: Discharge Order (Routine); Ordered 08/17/21 Ordered By: Star Biswas Diet: regular diet Activity on Discharge: As tolerated Stand Alone Forms: Patient Portal Discharge page, Community Support Care Plan Goals: Transfer to Medical floor to treat Alcohol withdrawal delirium Health Concerns: alcohol withdrawal delirium psychosis med compliance Plan of Treatment: transfer to medical floor Assessment: Alcohol withdrawal delirium Discharge Date/Time: 08/17/21 14:01
[2021-08-19 06:33] LABS: Folate 10.8 ng/mL (> or = 4.0); Vitamin B12 236 pg/mL (200-900)
[2021-08-23 12:21] LABS: Glucose, Whole Blood 195 mg/dL (60-115)
[2021-08-26 07:53] LABS: Glucose, Whole Blood 195 mg/dL (60-115)
== END 2021-08-17 14:01 | disposition short-term general hospital (02) | DRG 774 ==
LOC: HO.ED 00:35 → HO.PADLT16 22:24
PROVIDERS: Registered Nurse; Admitting Provider Psychiatry & Neurology Psychiatry; Emergency Provider Emergency Medicine; Visit Provider Psychiatry & Neurology Psychiatry
DX: F10.231 Alcohol dependence with withdrawal delirium (principal); F14.10 Cocaine abuse, uncomplicated; R45.851 Suicidal ideations; F10.229 Alcohol dependence with intoxication, unspecified; I10 Essential (primary) hypertension; Z20.822 Contact with and (suspected) exposure to COVID-19; Z88.8 Allergy status to other drugs, medicaments and biological substances; Z79.84 Long term (current) use of oral hypoglycemic drugs; Z79.899 Other long term (current) drug therapy
CPT/HCPCS: 36415; 70450; 80048; 80061; 80076; 80307; 81003; 82077; 82607; 82746; 82947; 83036; 83735; 84439; 84443; 85025; 87635; 93005; 99285; J3360

== ENCOUNTER 2021-08-17 13:57 | Inpatient (IN) | payer OTHER, SELFPAY ==
--- NOTE | 2021-08-17 14:11 | PM.IMHP ---
History of Present Illness Date of Service: 08/17/21 Chief Complaint: Confusion, hallucination a 56 years old male with PMH of schizophrenia, HTN, diabetes and alcoholism who presents to the hospital by ambulance for suicidal ideation admitted to the psych floor were he developed worsening symptoms of confusion and hallucination. The patient was brought by ambulance after expressing suicidal ideation. 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 I spoke with his brother who mention that he drinks heavily and that he has been sad and spending most of the diet his brother house. Admitted to psych floor overnight for SI. Developed agitation, restlessness, hallucinations per the nursing staff as the patient was wandering around the whole time. On evaluation the patient was sitting in the eating area and was able to answer questions but without the senior actuarial analyst understanding any of his words. Admitted for evaluation and treatment of alcohol withdrawal and concern of DTs. Review of Systems Review of Systems: No fever, chills or weakness No chest pain, palpitation No shortness of breath or coughing No abdominal pain, nausea or vomiting No urinary symptoms PMFSH Medical History Alcohol abuse Diabetes HTN (hypertension) Schizophrenia Social History Household Members: None Housing: Apartment Do you presently have visiting nurse or other home services: Yes Alcohol intake: current Alcohol intake frequency: 3 or more drinks per day Alcohol type: beer Patient Tobacco Use Status: Current everyday Tobacco user Tobacco use type: Cigarette Cigarette Packs Per Day: 1 Cigarettes Per Day: 20.0 Years Smoked: ''many'' e-Cigarette/Vaping Use: Never Used Substance Use Type: Crack/Cocaine Advance Directives: No Advance Directives Information Provided: No Meds Allergies Allergy/AdvReac Type Severity Reaction Status Date / Time haloperidol [From HALDOL] Allergy Unknown UNKNOWN Verified 07/31/20 21:19 lithium [[place]] Allergy Unknown UNKNOWN Verified 07/31/20 21:19 risperidone [From RISPERDAL] Allergy Unknown UNKNOWN Verified 07/31/20 21:19 [place] Carbonate Allergy Unknown Unknown Uncoded 07/31/20 21:19 Active Medications: Current Medications Acetaminophen (Acetaminophen 325 Mg Tablet) 650 mg PO Q6H PRN PRN Reason: Pain, Mild (Pain Scale 1-3) Enoxaparin Sodium (Enoxaparin Sodium 40 Mg/0.4 Ml Syringe) 40 mg SUBCUT Q24H [facility] Insulin Human Lispro (Insulin Lispro 100 Unit/Ml 3 Ml Vial) 0 unit SUBCUT QIDACHS [facility]; Protocol Ondansetron HCl (Ondansetron Hcl 4 Mg/2 Ml Vial) 4 mg IVPUSH Q8H PRN PRN Reason: Nausea and Vomiting Pharmacy Consult (Consult Rx Perform Med Rec) 1 each MISCELLANE ONCE PRN PRN Reason: Consult order Pharmacy Consult (Consult Rx Etoh Phenob Po Dose) 1 each MISCELLANE ONCE PRN; Protocol PRN Reason: Consult order Sodium Chloride (0.9 % Sodium Chloride Flush 3 Ml Syringe) 3 ml IVFLUSH QSHIFT [facility] Thiamine HCl (Thiamine Hcl 100 Mg Tablet) 100 mg PO DAILY [facility] Home Medications Medication Instructions Recorded Confirmed Last Taken Type benztropine 1 mg tablet 1 mg PO BID 07/31/20 08/17/21 Unknown History famotidine 20 mg tablet 20 mg PO BID 07/31/20 08/17/21 Unknown History fluphenazine HCl 5 mg tablet 5 mg PO BID 07/31/20 08/17/21 Unknown History glyburide 5 mg tablet 5 mg PO DAILY@0630 07/31/20 08/17/21 Unknown History pioglitazone 15 mg tablet 15 mg PO DAILY 07/31/20 08/17/21 Unknown History fluphenazine decanoate 25 mg/mL 50 ml IM Q2W 08/16/21 08/17/21 Unknown History injection solution hydroxyzine pamoate 50 mg capsule 1 cap PO BID PRN 08/16/21 08/17/21 Unknown History lisinopril 10 mg tablet 1 tab PO DAILY 08/16/21 08/17/21 Unknown History metformin 500 mg tablet,extended 1,000 mg PO BID 08/16/21 08/17/21 Unknown History release 24hr thiamine HCl (vitamin B1) 100 mg 1 tab PO DAILY 08/16/21 08/17/21 Unknown History tablet (Vitamin B-1) trazodone 50 mg tablet 1 tab PO BEDTIME PRN 08/16/21 08/17/21 Unknown History Physical Exam Const: Other: Constitutional : Alert, interactive, mildly agitated Neck : Normal inspection, Supple Cardiovascular : RRR, no JVP, no lower extremity edema Respiratory : fair bilateral air entry, no crackles, wheezes or rhonchi Gastrointestinal: soft, lax, Non tender Skin : Warm, Dry Neurological : Alert & confused, unable to assess orientation as his words are not clear, No focal deficit , CN 2-12 within normal, no clear tremors Psychiatry: restless, hallucination Assessment and Plan (1) Suicidal ideation: Status: Acute (2) Alcohol withdrawal: Status: Acute (3) Cocaine abuse: Status: Acute Plan a 56 years old male with PMH of schizophrenia, HTN, diabetes and alcoholism who presents to the hospital by ambulance for suicidal ideation admitted to the psych floor were he developed worsening symptoms of confusion and hallucination. alcohol withdrawal Unclear when was the last drink but his alcohol level on admission was Less than 10 Start phenobarbital protocol Received a dose of diazepam Thiamine, folic acid Recurrent reorientation Cocaine abuse Get addiction team evaluation Suicidal ideation Keep 1-1 sitter Get BHN AFib when medically cleared Type 2 diabetes SSI, diabetic diet continue home medications Hypertension Continue lisinopril schizophrenia continue fluphenazine Psych reported that he received his IM does almost 1 week ago, to confirm DVT PPX Lovenox Quality Stroke Does the patient have a stroke diagnosis?: No VTE Prior VTE?: No VTE Risk Level:: Medical - moderate - high VTE Device Contraindication: Treatment Not Indicated VTE Drug Contraindication: N/A - Med Ordered
--- NOTE | 2021-08-17 14:16 | PHA.MEDREC ---
Pharmacy Consult ? Medication Reconciliation Pharmacy has completed the medication reconciliation. Completed med rec yesterday and patient now transferred from .
[2021-08-17 14:49] VITALS: BMI 30.9
--- NOTE | 2021-08-17 15:00 | PM.EVENT ---
Event Note Date of Service: 08/17/21 Event Note: Addiction note: COnsult requested for patient with AUD and cocaine use Chart reviewed--patient disoriented, hallucinating. Will evaluate once less acute
[2021-08-17 15:28] VITALS: BP 129/58; PULSE 100; RESP 18; TEMP 36.7; O2SAT 96
[2021-08-17] MEDS: 0.9 % Sodium Chloride Flush 3 ML SYRINGE IVFLUSH (17:36)
[2021-08-17] MEDS: Enoxaparin Sodium 40 MG/0.4 ML SYRINGE SUBCUT (17:36)
[2021-08-17 19:25] VITALS: BP 124/83; PULSE 78; RESP 18; TEMP 36.4; O2SAT 95
[2021-08-17 20:18] LABS: Glucose, Whole Blood 168 mg/dL (60-115)
[2021-08-17] MEDS: Insulin Lispro 100 UNIT/ML 3 ML VIAL SUBCUT (21:24)
[2021-08-17] MEDS: fluPHENAZine HCl 5 MG TABLET PO (21:26)
[2021-08-17] MEDS: Benztropine Mesylate 1 MG TABLET PO (21:26)
[2021-08-17] MEDS: Famotidine 20 MG TABLET PO (21:26)
[2021-08-17 23:56] VITALS: BP 128/65; PULSE 82; RESP 18; TEMP 36.2; O2SAT 97
[2021-08-18] MEDS: 0.9 % Sodium Chloride Flush 3 ML SYRINGE IVFLUSH ×2 (01:05→08:01)
[2021-08-18 04:00] VITALS: BP 125/64; PULSE 77; RESP 18; TEMP 36; O2SAT 99
[2021-08-18] MEDS: glyBURIDE 5 MG TABLET PO (06:04)
[2021-08-18 06:31] LABS: Hematocrit 39.4 % (42.0-52.0); Mean Corpuscular Hemoglobin 29.9 pg (27.0-33.0); Mean Corpuscular Volume 90.6 fL (80.0-98.0); Mean Platelet Volume 10.2 fL (9.4-12.4); Platelet Count 212 X10*3/uL (160-400); Red Blood Count 4.35 X10*6/uL (4.60-5.80); White Blood Count 8.9 X10*3/uL (4.8-10.8)
[2021-08-18 07:00] VITALS: BP 158/92; PULSE 99; RESP 20; TEMP 36; O2SAT 98
[2021-08-18 07:45] LABS: Glucose, Whole Blood 153 mg/dL (60-115)
[2021-08-18] MEDS: lisinopriL 10 MG TABLET PO (08:00)
[2021-08-18] MEDS: Benztropine Mesylate 1 MG TABLET PO (08:00)
[2021-08-18] MEDS: Nicotine 21 MG PATCH.TD24 TRANSDERMA (08:00)
[2021-08-18] MEDS: Folic Acid 1 MG TABLET PO (08:00)
[2021-08-18] MEDS: Thiamine HCL 100 MG TABLET PO (08:00)
[2021-08-18] MEDS: Famotidine 20 MG TABLET PO (08:00)
[2021-08-18] MEDS: PHENobarbitaL 15 MG TABLET 45 MG PO (08:00)
[2021-08-18] MEDS: fluPHENAZine HCl 5 MG TABLET PO (08:00)
[2021-08-18 08:33] LABS: Anion Gap 10 (12-20); Blood Urea Nitrogen 18 mg/dL (9-16); Carbon Dioxide 30 mmol/L (22-29); Chloride 101 mmol/L (96-108); Creatinine Clr Calc Pharmacy 69.6; Estimated Glomerular Filt Rate > 60; Glucose Random 174 mg/dL (60-115); Potassium 4.4 mmol/L (3.3-5.1); Sodium 137 mmol/L (135-145)
--- NOTE | 2021-08-18 10:04 | MHC.CARE ---
Pt referred to [facility]
[2021-08-18 11:14] LABS: Glucose, Whole Blood 177 mg/dL (60-115)
--- NOTE | 2021-08-18 11:21 | MHC.CM.PN ---
Patient scoring a 5 CIWA; notes indicative of active hallucinations and agitation. Call attempted to listed contact (brother); no answer. Unable to leave detailed, confidential VM; VM not specific to person called. LVM requesting return call. CM to follow.
[2021-08-18] MEDS: Insulin Lispro 100 UNIT/ML 3 ML VIAL SUBCUT (12:15)
--- NOTE | 2021-08-18 12:24 | P.PNIM_ITS ---
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 understanding his words but he reports no pain follow commands the but mildly restless on occasions No reported other overnight events Review of Systems No fever, chills or weakness No chest pain, palpitation No shortness of breath or coughing No abdominal pain, nausea or vomiting No urinary symptoms Physical Exam Vital Signs: Vital Signs: Last Vital Signs Temp 96.8 F 08/18/21 07:00 Pulse 99 08/18/21 07:00 Resp 20 08/18/21 07:00 BP 158/92 H 08/18/21 07:00 Pulse Ox 98 08/18/21 07:00 BMI result Body Mass Index 30.9 Const: Other: Constitutional : Alert, interactive, mildly agitated Neck : Normal inspection, Supple Cardiovascular : RRR, no JVP, no lower extremity edema Respiratory : fair bilateral air entry, no crackles, wheezes or rhonchi Gastrointestinal: soft, lax, Non tender Skin : Warm, Dry Neurological : Alert & oriented for self, place, No focal deficit , CN 2-12 within normal, no tremors Psychiatry: restless, staff reporting talking to someone who is not there; hallucination Objective Data Active Medications Acetaminophen (Acetaminophen 325 Mg Tablet) 650 mg PO Q6H PRN PRN Reason: Pain, Mild (Pain Scale 1-3) Benztropine Mesylate (Benztropine Mesylate 1 Mg Tablet) 1 mg PO BID [facility] Last Admin: 08/18/21 08:00 Dose: 1 mg Documented by: MATTEO Enoxaparin Sodium (Enoxaparin Sodium 40 Mg/0.4 Ml Syringe) 40 mg SUBCUT Q24H [facility] Last Admin: 08/17/21 17:36 Dose: 40 mg Documented by: JUANCARLOS Famotidine (Famotidine 20 Mg Tablet) 20 mg PO BID [facility] Last Admin: 08/18/21 08:00 Dose: 20 mg Documented by: MATTEO Fluphenazine HCl (Fluphenazine Hcl 5 Mg Tablet) 5 mg PO BID [facility] Last Admin: 08/18/21 08:00 Dose: 5 mg Documented by: MATTEO Folic Acid (Folic Acid 1 Mg Tablet) 1 mg PO DAILY [facility] Last Admin: 08/18/21 08:00 Dose: 1 mg Documented by: MATTEO Glyburide (Glyburide 5 Mg Tablet) 5 mg PO DAILY@0630 [facility] Last Admin: 08/18/21 06:04 Dose: 5 mg Documented by: [place] Hydroxyzine HCl (Hydroxyzine Hcl 50 Mg Tablet) 50 mg PO BID PRN PRN Reason: anxiety Insulin Human Lispro (Insulin Lispro 100 Unit/Ml 3 Ml Vial) 0 unit SUBCUT QIDACHS [facility]; Protocol Last Admin: 08/18/21 12:15 Dose: 2 unit Documented by: MATTEO Lisinopril (Lisinopril 10 Mg Tablet) 10 mg PO DAILY [facility]; Protocol Last Admin: 08/18/21 08:00 Dose: 10 mg Documented by: MATTEO Nicotine (Nicotine 21 Mg Patch.Td24) 21 mg TRANSDERMA DAILY [facility] Last Admin: 08/18/21 08:00 Dose: 21 mg Documented by: MATTEO Ondansetron HCl (Ondansetron Hcl 4 Mg/2 Ml Vial) 4 mg IVPUSH Q8H PRN PRN Reason: Nausea and Vomiting Pharmacy Consult (Consult Rx Perform Med Rec) 1 each MISCELLANE ONCE PRN PRN Reason: Consult order Pharmacy Consult (Consult Rx Etoh Phenob Po Dose) 1 each MISCELLANE ONCE PRN; Protocol PRN Reason: Consult order Phenobarbital (Phenobarbital 15 Mg Tablet) 45 mg PO BID [facility] Stop: 08/19/21 21:01 Last Admin: 08/18/21 08:00 Dose: 45 mg Documented by: MATTEO Phenobarbital (Phenobarbital 30 Mg Tablet) 30 mg PO BID [facility] Stop: 08/21/21 21:01 Phenobarbital (Phenobarbital 15 Mg Tablet) 15 mg PO DAILY [facility] Stop: 08/23/21 09:01 Pioglitazone HCl (Pioglitazone Hcl 15 Mg Tablet) 15 mg PO DAILY [facility] Last Admin: 08/18/21 08:00 Dose: 15 mg Documented by: MATTEO Sodium Chloride (0.9 % Sodium Chloride Flush 3 Ml Syringe) 3 ml IVFLUSH QSHIFT [facility] Last Admin: 08/18/21 08:01 Dose: 3 ml Documented by: MATTEO Thiamine HCl (Thiamine Hcl 100 Mg Tablet) 100 mg PO DAILY [facility] Last Admin: 08/18/21 08:00 Dose: 100 mg Documented by: MATTEO Trazodone HCl (Trazodone Hcl 50 Mg Tablet) 50 mg PO BEDTIME PRN PRN Reason: insomnia Labs CBC & Chem 7: 08/18/21 06:04 08/18/21 06:04 Labs: Laboratory Results - last 24 hr 08/17/21 08/18/21 08/18/21 19:44 06:04 06:04 MCV 90.6 MCH 29.9 MCHC 33.0 RDW 12.0 Plt Count 212 MPV 10.2 Absolute Nucleated RBC 0.000 Nucleated RBC % (auto) 0.0 Anion Gap 10 L Estim Creat Clear Calc 69.6 Estimated GFR > 60 POC Glucose 168 H Random Glucose 174 H D Calcium 10.0 08/18/21 08/18/21 07:41 11:09 MCV MCH MCHC RDW Plt Count MPV Absolute Nucleated RBC Nucleated RBC % (auto) Anion Gap Estim Creat Clear Calc Estimated GFR POC Glucose 153 H 177 H Random Glucose Calcium Assessment and Plan (1) Alcohol withdrawal: Status: Acute (2) Cocaine abuse: Status: Acute (3) Hallucinations: Status: Acute Plan a 56 years old male with PMH of schizophrenia, HTN, diabetes and alcoholism who presents to the hospital by ambulance for suicidal ideation admitted to the psych floor were he developed worsening symptoms of confusion and hallucination. alcohol withdrawal Controlled with medications scoring low on CIWA protocol continue phenobarbital protocol Thiamine, folic acid Recurrent reorientation hallucinations Seems to be related to his history of schizophrenia more than alcohol withdrawal To get psychiatry evaluation and possible transfer over to psych unit Cocaine abuse Get addiction team evaluation Suicidal ideation Keep 1-1 sitter medically cleared,Get N Evaluation for placement Type 2 diabetes SSI, diabetic diet continue home medications Hypertension Continue lisinopril schizophrenia continue fluphenazine Psych reported that he received his IM does almost 1 week ago, to confirm DVT PPX Lovenox Quality Stroke Does the patient have a stroke diagnosis?: No VTE Prior VTE?: No VTE Risk Level:: Medical - moderate - high VTE Device Contraindication: Treatment Not Indicated VTE Drug Contraindication: N/A - Med Ordered
--- NOTE | 2021-08-18 14:21 | P.DS_ITS ---
DS: Providers Provider Date of Service: 08/18/21 Date of admission: 08/17/21 13:57 Primary care physician: Unknown Physician Consults: 08/17/21 14:01 Addiction Medicine Routine Consulting Provider: Ladonna Cadet Reason for consultation: Alcohol abuse and withdrawal , cocaine abuse 08/18/21 09:53 Consult to Care Team Routine Comment: Reason for consultation: Depression, crying, SI, medically stable for discharge DS: Diagnosis Discharge Diagnosis (1) Alcohol withdrawal: Status: Acute (2) Hallucinations: Status: Acute (3) Suicidal ideation: Status: Acute DS: Summary Hospital Course Hospital Course: Admission note HPI ?a 56 years old male with PMH of schizophrenia, HTN, diabetes and alcoholism who presents to the hospital by ambulance for suicidal ideation admitted to the psych floor were he developed worsening symptoms of confusion and? hallucination.? The patient was brought by ambulance after expressing suicidal ideation.? The patient was unable to provide any meaningful history as he is [place] speaker and motor vehicle parts interpreter could not make much of what he is saying.? I spoke with his brother who mention that he drinks heavily and that he has been sad and spending most of the diet his brother house.? Admitted to? psych floor overnight for? SI.? Developed agitation, restlessness, hallucinations per the nursing staff as the patient was wandering around the whole time. On evaluation the patient was sitting in the eating area and was able to answer questions but without? the motor vehicle parts interpreter understanding any of his words. Admitted for evaluation and treatment of alcohol withdrawal and concern of DTs. Hospital course The patient was admitted from the psychiatry unit for reported hallucinations and alcohol withdrawal. Started on phenobarbital protocol with fair response as he did not score high on CIWA and became more alert and interactive. Continue to report Auditory hallucinations by the nursing staff as the patient was noticed talking to someone. His speech is not clear and motor vehicle parts interpreter found difficulties understanding what he means but the patient family and PSA presented and reported that this is his baseline from home and he follows with his outpatient psychiatrist. Reported he received his anti psychotic injection last 1 stay. Evaluated by behavioral health team for concern of suicidal ideation at time of presentation who suggested the patient is not under risk of suicide. To be discharged home to follow-up with his psychiatrist as outpatient. Time Spent with Patient Time attestation: Total time spent providing and/or coordinating discharge services: Discharge coordination time: Greater than 30 minutes Quality: Safe Use of Opioids Does Pt have an Active Cancer Diagnosis on the Problem List?: No Quality: Stroke Does the patient have a stroke diagnosis?: No Physical Exam Vital Signs: Vital Signs: Last Vital Signs Temp 96.8 F 08/18/21 07:00 Pulse 99 08/18/21 07:00 Resp 20 08/18/21 07:00 BP 158/92 H 08/18/21 07:00 Pulse Ox 98 08/18/21 07:00 BMI result Body Mass Index 30.9 Const: Other: Constitutional : Alert, interactive, relaxed about leaving the hospital Neck : Normal inspection, Supple Cardiovascular : RRR, no JVP, no lower extremity edema Respiratory : fair bilateral air entry, no crackles, wheezes or rhonchi Gastrointestinal: soft, lax, Non tender Skin : Warm, Dry Neurological : Alert & oriented for self, place, No focal deficit , CN 2-12 within normal, no tremors Psychiatry: Interactive, not in distress DS: Data Data Completed and Pending Labs on day of discharge: Laboratory Results - last 24 hr 08/17/21 08/18/21 08/18/21 19:44 06:04 06:04 WBC 8.9 RBC 4.35 L Hgb 13.0 L Hct 39.4 L MCV 90.6 MCH 29.9 MCHC 33.0 RDW 12.0 Plt Count 212 MPV 10.2 Absolute Nucleated RBC 0.000 Nucleated RBC % (auto) 0.0 Sodium 137 Potassium 4.4 Chloride 101 Carbon Dioxide 30 H Anion Gap 10 L BUN 18 H D Creatinine 1.09 Estim Creat Clear Calc 69.6 Estimated GFR > 60 POC Glucose 168 H Random Glucose 174 H D Calcium 10.0 08/18/21 08/18/21 07:41 11:09 WBC RBC Hgb Hct MCV MCH MCHC RDW Plt Count MPV Absolute Nucleated RBC Nucleated RBC % (auto) Sodium Potassium Chloride Carbon Dioxide Anion Gap BUN Creatinine Estim Creat Clear Calc Estimated GFR POC Glucose 153 H 177 H Random Glucose Calcium Discharge Plan Discharge Patient Disposition: Home Health Service Discharge Diagnosis: Alcohol withdrawal Hallucinations Referrals: Physician,Unknown J [Primary Care Provider] - 1 Week Discharge Medications: Continued pioglitazone 15 mg tablet 15 mg PO DAILY 0RF glyburide 5 mg tablet 5 mg PO DAILY@0630 0RF famotidine 20 mg tablet 20 mg PO BID 0RF benztropine 1 mg tablet 1 mg PO BID 0RF fluphenazine HCl 5 mg tablet 5 mg PO BID 0RF fluphenazine decanoate 25 mg/mL solution 50 ml IM Q2W 0RF trazodone 50 mg tablet 1 tab PO BEDTIME PRN (Reason: insomnia) 0RF lisinopril 10 mg tablet 1 tab PO DAILY 0RF thiamine HCl (vitamin B1) [Vitamin B-1] 100 mg tablet 1 tab PO DAILY 0RF hydroxyzine pamoate 50 mg capsule 1 cap PO BID PRN (Reason: anxiety) 0RF metformin 500 mg Tablet Extended Release 24hr 1,000 mg PO BID 0RF multivitamin [Daily-Areli] Tablet 1 tab PO DAILY Qty: 30 0RF nicotine 21 mg/24 hr Patch 24 Hour 21 mg transdermal DAILY 28 Days Qty: 28 0RF folic acid 1 mg Tablet 1 mg PO DAILY Qty: 30 0RF thiamine mononitrate (vit B1) 100 mg Tablet 100 mg PO DAILY Qty: 30 0RF Discharge Orders: Discharge Order (Routine); Ordered 08/18/21 Ordered By: Raven Arevalo Diet: advance to usual diet Activity on Discharge: As tolerated Stand Alone Forms: Patient Portal Discharge page Care Plan Goals: Read below Health Concerns: Read below Plan of Treatment: Read below Assessment: you were admitted to the hospital for suicidal ideation. Evaluated by psychia try team who felt to have alcohol withdrawal. Treated with phenobarbital protocol with good response. Evaluated by behavioral health team who cleared you to be discharged home. continue home medications as prescribed to follow-up with your psychiatrist as outpatient.
--- NOTE | 2021-08-18 14:55 | MHC.CM.PN ---
order for home, self care; CM acknowledge.
== END 2021-08-18 14:53 | disposition home health service (06) | DRG 774 ==
PROVIDERS: Admitting Provider Student in an Organized Health Care Education/Training Program; Visit Provider Student in an Organized Health Care Education/Training Program
DX: F10.239 Alcohol dependence with withdrawal, unspecified (principal); F14.10 Cocaine abuse, uncomplicated; R45.851 Suicidal ideations; E11.9 Type 2 diabetes mellitus without complications; F20.9 Schizophrenia, unspecified; I10 Essential (primary) hypertension; Z79.84 Long term (current) use of oral hypoglycemic drugs; Z88.8 Allergy status to other drugs, medicaments and biological substances; Z79.899 Other long term (current) drug therapy
CPT/HCPCS: 36415; 80048; 82947; 85027; J1650